=== PATIENT | male | born 1945 | race Caucasian/White ===

== ENCOUNTER → 2023-09-07 11:28 | Outpatient (REF) | payer MEDICARE, OTHER, SELFPAY ==
[2023-09-07 12:46] LABS: ALT (SGPT) 24 U/L (0-50); AST (SGOT) 18 U/L (17-59); Albumin 4.5 g/dl (3.5-5.0); Alkaline Phosphatase 75 U/L (38-126); Direct Bilirubin 0.5 mg/dl (0.0-0.4); Glucose 143 mg/dl (70-99); HDL Cholesterol 57 mg/dl; LDL Cholesterol, Calculated 63 mg/dl; Total Bilirubin 0.5 mg/dl (0.2-1.3); Total Cholesterol 139 mg/dl (50-199); Total Protein 7.1 g/dl (6.3-8.2); Triglyceride 99 mg/dl (10-149); Very Low Density Lipoprotein 19 mg/dl (0-30)
== END ==
LOC: REG 11:28
PROVIDERS: ATTENDING PHYSICIAN Internal Medicine; OTHER PHYSICIAN Internal Medicine
DX: E11.59 Type 2 diabetes mellitus with other circulatory complications (principal); I10 Essential (primary) hypertension; E78.2 Mixed hyperlipidemia; Z79.891 Long term (current) use of opiate analgesic
CPT/HCPCS: 36415; 80061; 80076; 82947; 83036

== ENCOUNTER → 2023-09-13 20:02 | Outpatient (REF) | payer MEDICARE, OTHER, SELFPAY | LOC: MRI 20:02 | PROVIDERS: ATTENDING PHYSICIAN Physician Assistant Surgical; FAMILY PHYSICIAN Internal Medicine | DX: M25.512 Pain in left shoulder (principal) | CPT/HCPCS: 73221 ==

== ENCOUNTER → 2023-09-29 11:45 | Outpatient (REF) | payer MEDICARE, OTHER, SELFPAY | LOC: RAD 11:45 | PROVIDERS: ATTENDING PHYSICIAN Internal Medicine; OTHER PHYSICIAN Internal Medicine; OTHER PHYSICIAN Internal Medicine Critical Care Medicine; OTHER PHYSICIAN Nurse Practitioner Adult Health | DX: Z87.891 Personal history of nicotine dependence (principal); I42.8 Other cardiomyopathies; E11.59 Type 2 diabetes mellitus with other circulatory complications; I10 Essential (primary) hypertension; E78.5 Hyperlipidemia, unspecified; Z00.00 Encounter for general adult medical examination without abnormal findings | CPT/HCPCS: 71271 ==

== ENCOUNTER → 2023-10-03 12:09 | Outpatient (REF) | payer MEDICARE, OTHER, SELFPAY ==
[2023-10-03 13:12] LABS: % Basophils 0.4 % (0-2); % Eosinophils 0.7 % (0-6); % Immature Granulocytes 0.3 % (0-0.5); % Lymphocytes 24.5 % (20.5-51.1); % Monocytes 6.2 % (1.7-9.3); % Neutrophils 67.9 % (42.2-75.2); Absolute Basophils 0.1 10^3/uL (0-0.2); Absolute Eosinophils 0.1 10^3/uL (0-0.7); Absolute Lymphocytes 2.9 10^3/uL (1.2-3.4); Absolute Monocytes 0.7 10^3/uL (0.1-0.6); Absolute Neutrophils 8.1 10^3/uL (1.4-6.5); Hemoglobin 14.4 g/dL (13.0-18.0); Mean Corpuscular Hgb 29.3 pg (27.0-31.0); Mean Corpuscular Volume 91.6 fL (80.0-94.0); Mean Platelet Volume 9.1 fL (7.4-10.4); Nucleated Red Blood Cells % 0 % (-); Platelet Count 275 10^3/uL (130-400); Red Blood Cell Count 4.91 10^6/uL (4.70-6.10)
[2023-10-03 13:38] LABS: ALT (SGPT) 43 U/L (0-50); AST (SGOT) 19 U/L (17-59); Albumin 3.7 g/dl (3.5-5.0); Alkaline Phosphatase 76 U/L (38-126); Blood Urea Nitrogen 26 mg/dl (9-20); Calcium 9.8 mg/dl (8.4-10.2); Carbon Dioxide 23 mmol/L (22-30); Chloride 108 mmol/L (98-107); Glucose 158 mg/dl (70-99); HDL Cholesterol 59 mg/dl; LDL Cholesterol, Calculated 51 mg/dl; Potassium 4.6 mmol/L (3.5-5.1); Sodium 140 mmol/L (135-145); Total Bilirubin 0.5 mg/dl (0.2-1.3); Total Cholesterol 138 mg/dl (50-199); Total Protein 6.1 g/dl (6.3-8.2); Triglyceride 141 mg/dl (10-149); Very Low Density Lipoprotein 28 mg/dl (0-30); eGFR > 60.00
[2023-10-03 14:15] LABS: Glycohemoglobin (HgbA1c) 8.7 % (4.0-5.6)
== END ==
LOC: REG 12:09
PROVIDERS: ATTENDING PHYSICIAN Internal Medicine; FAMILY PHYSICIAN Internal Medicine
DX: I42.8 Other cardiomyopathies (principal); E11.59 Type 2 diabetes mellitus with other circulatory complications; I10 Essential (primary) hypertension; E78.5 Hyperlipidemia, unspecified; Z00.00 Encounter for general adult medical examination without abnormal findings; N41.9 Inflammatory disease of prostate, unspecified
CPT/HCPCS: 36415; 80053; 80061; 83036; 84153; 84154; 85025

== ENCOUNTER → 2023-10-20 09:49 | Outpatient (REF) | payer MEDICARE, OTHER, SELFPAY | LOC: HWRAD 09:49 | PROVIDERS: FAMILY PHYSICIAN Internal Medicine; OTHER PHYSICIAN Orthopaedic Surgery Hand Surgery | DX: R10.13 Epigastric pain (principal); K29.00 Acute gastritis without bleeding; K44.9 Diaphragmatic hernia without obstruction or gangrene; I51.9 Heart disease, unspecified; R11.0 Nausea; M25.511 Pain in right shoulder | CPT/HCPCS: 76700 ==

== ENCOUNTER → 2023-11-07 16:47 | Outpatient (REF) | payer MEDICARE, OTHER, SELFPAY | LOC: RCS 16:47 | PROVIDERS: ATTENDING PHYSICIAN Internal Medicine; FAMILY PHYSICIAN Internal Medicine | DX: I47.10 Supraventricular tachycardia, unspecified (principal); I10 Essential (primary) hypertension | CPT/HCPCS: 93306 ==

== ENCOUNTER → 2023-12-05 13:12 | Outpatient (REF) | payer MEDICARE, OTHER, SELFPAY ==
[2023-12-05 15:59] LABS: Urine Albumin Negative (Neg - Trace); Urine Bilirubin Negative (Negative); Urine Character Clear (Clear); Urine Color Yellow; Urine Glucose 3+ (Negative); Urine Ketone Negative (Negative); Urine Leukocyte Negative (Negative); Urine Nitrite Negative (Negative); Urine Occult Blood Negative (Negative); Urine Urobilinogen Negative (Neg - 1+)
[2023-12-05 16:09] LABS: % Basophils 0.9 % (0-2); % Eosinophils 3.6 % (0-6); % Immature Granulocytes 0.3 % (0-0.5); % Lymphocytes 22.2 % (20.5-51.1); % Monocytes 7.7 % (1.7-9.3); % Neutrophils 65.3 % (42.2-75.2); Absolute Basophils 0.1 10^3/uL (0-0.2); Absolute Eosinophils 0.4 10^3/uL (0-0.7); Absolute Lymphocytes 2.5 10^3/uL (1.2-3.4); Absolute Monocytes 0.9 10^3/uL (0.1-0.6); Absolute Neutrophils 7.4 10^3/uL (1.4-6.5); Hematocrit 44.2 % (39.0-52.0); Hemoglobin 14.6 g/dL (13.0-18.0); Mean Corpuscular Hgb 28.2 pg (27.0-31.0); Mean Corpuscular Volume 85.5 fL (80.0-94.0); Mean Platelet Volume 9.4 fL (7.4-10.4); Nucleated Red Blood Cells % 0 % (-); Platelet Count 273 10^3/uL (130-400); Red Blood Cell Count 5.17 10^6/uL (4.70-6.10); Red Cell Dist. Width 15.5 % (11.5-14.5); White Blood Cell Count 11.4 10^3/uL (4.8-10.8)
[2023-12-05 16:37] LABS: ALT (SGPT) 17 U/L (0-50); AST (SGOT) 18 U/L (17-59); Albumin 4.1 g/dl (3.5-5.0); Blood Urea Nitrogen 30 mg/dl (9-20); Calcium 9.6 mg/dl (8.4-10.2); Carbon Dioxide 21 mmol/L (22-30); Glucose 105 mg/dl (70-99); Potassium 4.9 mmol/L (3.5-5.1); Total Bilirubin 0.3 mg/dl (0.2-1.3); Total Cholesterol 131 mg/dl (50-199); Total Protein 6.4 g/dl (6.3-8.2); Triglyceride 164 mg/dl (10-149); Very Low Density Lipoprotein 32 mg/dl (0-30); eGFR > 60.00
[2023-12-05 16:46] LABS: Alkaline Phosphatase 69 U/L (38-126); Chloride 107 mmol/L (98-107); HDL Cholesterol 50 mg/dl; LDL Cholesterol, Calculated 49 mg/dl; Sodium 136 mmol/L (135-145)
[2023-12-05 17:08] LABS: PSA, Total - Screen 2.18 ng/ml (0.0-4.0)
[2023-12-06 09:08] LABS: Glycohemoglobin (HgbA1c) 7.2 % (4.0-5.6)
== END ==
LOC: REG 13:12
PROVIDERS: ATTENDING PHYSICIAN Specialist; FAMILY PHYSICIAN Internal Medicine; REFERRING PHYSICIAN Internal Medicine Cardiovascular Disease
DX: Z00.01 Encounter for general adult medical examination with abnormal findings (principal); E11.59 Type 2 diabetes mellitus with other circulatory complications; E78.2 Mixed hyperlipidemia; I10 Essential (primary) hypertension; I50.32 Chronic diastolic (congestive) heart failure; Z12.5 Encounter for screening for malignant neoplasm of prostate; I47.10 Supraventricular tachycardia, unspecified; R35.0 Frequency of micturition
CPT/HCPCS: 36415; 80053; 80061; 81003; 83036; 85025; G0103

== ENCOUNTER 2023-12-08 07:38 | Day surgery (SDC) | payer MEDICARE, OTHER, SELFPAY ==
[2023-12-08] VITALS (17 sets, daily range): BP systolic 91–140; BP diastolic 53–88; BMI 31.6
[2023-12-08 09:18] LABS: Glucose - Point of Care 91 mg/dl (70-99)
[2023-12-08 12:13] LABS: ACT-LR - POC 387 Seconds (116-155)
[2023-12-08 12:57] LABS: ACT-LR - POC 356 Seconds (116-155)
[2023-12-08 13:09] LABS: Glucose - Point of Care 130 mg/dl (70-99)
--- NOTE | 2023-12-08 14:24 | ITS.CL.ABL ---
Form Setter [employer] Forms - Ablation
Ablation
Procedure Report:
Supra-Ventricular Tachycardia � AT Ablation:
Mr. Laws is a very pleasant�78 yr old gentleman with medical history significant for palpitations and was diagnosed with supra-ventricular tachycardia (SVT) s/p SVT ablation in [place] presented with recurrent incessant palpitations. He recorded
his heart rate going [id number] bp. He presented today to the EP lab for electrophysiology (EP) study of the heart and possible ablation of the SVT.
�
Date of the Procedure:
12/08/2023
Indications: Supra-Ventricular Tachycardia (SVT)
�
Pre-Operative Diagnosis: Supra-Ventricular Tachycardia (SVT)
�
Post-Operative Diagnosis: Supra-Ventricular Tachycardia (SVT) with AT from left atrial septal wall, AVNRT and right atrial anterior wall AT
�
Procedure Performed: EP study and SVT ablation
�
Performing Physician:
Hemalatha Schwab MD
Assistants:
EP staff
�
Anesthesia:
See anesthesia records
�
Detailed Description of the Procedure:
Written informed consent was obtained from the patient after a full explanation of the risks and benefits of the procedure including the risks of sedation and anesthesia. The patient was brought to the electrophysiology laboratory in stable
condition in fasting state. Continuous electrocardiographic and hemodynamic monitoring was initiated.
The initial rhythm was normal sinus.
The procedure site was meticulously prepared with surgical scrub and allowed to dry with no pooling. Sterile draping was applied to cover the procedure site. The image intensifier was draped with sterile bag and positioned over the patient.
Sheath and Catheter Placement:
After infusion of local anesthetic, vascular access was obtained under ultrasound guidance and sheaths were placed over guide wire as detailed below.
�
Sheaths:
- � � � 6 Fr sheath in right femoral vein upgraded to 9 Fr long Sheath
- � � � 7 Fr sheath in right femoral vein
- � � � 6 Fr that was later upgraded to 11.5 Fr Agilis sheath in right femoral vein
Catheters:
- � � � 6Fr - Erich Quad-cath at RVa
- � � � 6Fr �CRD Quad - cath at HIS
- � � � Deca polar Bard catheter - at locations of CS
- � � � ICE in RA
- � � � 4 mm force sensing irrigated Tacticath SF Bidirectional
Following the sheaths placement, patient was given Heparin bolus and EP study was done.
�
Patient went into SVT spontaneously and was easily inducible during the study. The baseline EP study could not be done due to initiation of AT with every attempt of pacing.
Baseline intervals (milliseconds):
PP interval (baseline cycle length): 740
P wave duration:118
SD interval: 210
QRS duration: 84
QT interval: 354
�
P onset to HRA: 0
P onset to AVJ: 40
AH interval: 114
His duration: 12
HV interval: 51
Q onset to RVa: 0
EP study was difficult to done as patient was in incessant tachycardia � CL of 470 msec.
Tachycardia:
The tachycardia was studies with a cycle length of 470 msec. The tachycardia was concentric and had a long VA time. The tachycardia was entrained from the RVa ventricle.
i)������������� The CS signal of the tachycardia was concentric from proximal to distal
ii)������������ RVa PPI was long
iii)���������� No sign of pre-excited QRS complexes or progressive pre-excitation.�
iv)���������� The RV pacing showed VAAV response.
v)����������� The V pacing also dissociated the V from the tachycardia
vi)���������� The proximal CS entrainment was shorter and distal was longer.
These findings were consistent with atrial tachycardia.�
Electroanatomic mapping:
His catheter was removed and was upgraded to tacticath ablation catheter with Agilis catheter.� Right atrium was mapped using the ablation catheter. �The tachycardia was focal region noted at the right atrial septal wall next to the his signals.�
This is the location of fast pathway.� The possibility of sensory pathway versus atypical AVNRT was again entertained.� The RP was long and was not consistent with typical AVNRT.� However slow slow AVNRT was still possible.� Tachycardia was mapped
thoroughly.� Entrainment's were again done and confirmed to be atrial tachycardia.� Assisted pathway was again ruled out and AVRT was rule out by dissociating RV and LV from the tachycardia.
Slow pathway modification for atypical AVNRT:
With the possibility of slow pathway involvement with slow slow AVNRT, slow pathway was ablated. Using tacticath ablation catheter, the slow pathway modification was done using 30 W with minimal irrigation and contact force sensing. Radiofrequency
was applied and series of lesions were placed connecting the tricuspid annulus to CS orifice.
EP study was done and tachycardia was again inducible with 490 ms cycle length.� The tachycardia was slightly different from the earlier tachycardia noted at the start.� He was again mapped. The tachycardia was incessant and stabilized again to 480
ms.
Tachycardia appears to be coming from the septal side and the decision was made to map the left atrium as well.
RV catheter was removed and upgraded to 924 ice catheter.
Trans-Septal Puncture:
Heparin was initiated and infused to maintain appropriate ACT. A J-tipped guidewire was advanced through the 8-Faroese sheath in the right femoral vein into the superior vena cava under fluoroscopic and ICE guidance. The 8-Faroese sheath was exchanged
for an Agilis sheath which was advanced into the superior vena cava. A TSX needle was advanced until the tip was slightly behind the tip of the dilator inside the Agilis. The apparatus was withdrawn until it was in contact with the fossa ovalis. The
position was adjusted based on fluoroscopy and ultrasound images from ICE. Under fluoroscopic, hemodynamic and ICE ultrasound guidance, left atrium was cannulated by advancing the needle. Once atrial septum was cannulated, the needle was pulled back
and an ironman guide wire was advanced through the needle into the left atrium. The guide wire was advanced into the left superior pulmonary vein. Both the sheath and the dilator was advanced into the left atrium. The dilator with the needle was
withdrawn. Blood was aspirated from the Agilis sheath and arterial blood confirmed. The sheath was flushed. Saline injection noted into the left atrium on ICE. The ablation catheter was advanced in the Agilis sheath into the left pulmonary vein.
Electroanatomic 3D Mapping (EAM) and Ablation:
3D contact electroanatomical map was created using YOLANDE mapping.�The focal AT was noted to be located at the left atrial septalr wall. Excellent q wave pattern noted on the unipolar voltage and pre-P wave bipolar signal noted. �Using the Tacticath
the ablation catheter was placed at the AT origin and ablation lesions were created at 30W at 50 C temp with the goal of LSI of 350 for each lesion.
Further consolidated ablation lesions were applied.
The tachycardia terminated into sinus rhythm. The incessant SVT disappeared and no spontaneous tachycardia was present.
EP study and burst pacing from the CS was able to induce tachycardia again. It was 560 msec and a little different in the CS activation match. The tachycardia was mapped and was thought to be coming from the right atrium.
Right atrial tachycardia ablation:
The catheter was moved from left atrium to the right atrium. The right atrium was again mapped and the earliest focal origin of the tachycardia identified. The focal origin was very close to the fast pathway and his signals.
Using 30 W with minimal irrigation and ablation lesions was created using tacticath and contact for sensing. Tachycardia terminated into normal sinus rhythm with ablation. Further consolidation lesions were applied. There was no damage to conduction
system noted. Normal stable AV conduction noted without any change in SD interval.
Postablation electrophysiologic study:
Follow-up study was done with burst pacing from right atrium, left atrium and CS without any evidence of recurrence of atrial tachycardia or any arrhythmia.� Normal sinus rhythm noted.
Normal connection via AV node noted with normal decremental conduction.� AV juliet ERP was less than atrial ERP which was at 600/240msec.
Procedure End
Following the completion of the EP study, catheters were removed. The sheaths were removed and hemostasis achieved with placement of �figure of 8� sutures and manual compression.
Recommendations:
��������� �Figure of 8� suture to be removed in 4 hours with another 1 hour of bedrest before slow ambulation.
��������� Likely discharge home today.
��������� No change in home medications.
�
Estimated Blood loss:
<5 cc
�
Specimens Removed:
None.
�
Implants / Devices:
None
�
Urine output:
None
�
Packs / Drains/ Tubes:
None
�
Instrument / Sponge Count Correct:
Yes
�
Complications of the Procedure:
None
�
Condition of Patient at Time of Transfer:
Hemodynamically stable with no neurological or vascular compromise.
�
Summary:
Electrophysiology study with induction of left atrial tachycardia (AT), AVNRT with slow pathway modification, atrial tachycardia ablation of the right atrial anterior wall.
[2023-12-08 15:09] LABS: Glucose - Point of Care 185 mg/dl (70-99)
[2023-12-08 15:36] LABS: ACT-LR - POC > 397 Seconds (116-155)
== END 2023-12-08 18:00 | disposition home or self-care (01) ==
LOC: CATH 07:38
PROVIDERS: ATTENDING PHYSICIAN Internal Medicine Cardiovascular Disease; FAMILY PHYSICIAN Internal Medicine; OTHER PHYSICIAN Internal Medicine
DX: I47.19 Other supraventricular tachycardia (principal); Z79.82 Long term (current) use of aspirin; Z79.84 Long term (current) use of oral hypoglycemic drugs; Z79.890 Hormone replacement therapy; Z79.899 Other long term (current) drug therapy
CPT/HCPCS: 93662; C1769; C1730; C1894; C1766; C2630; C1892; C1759; 76937; 82962; 85347; 93005; 93462; 93653

== ENCOUNTER → 2024-02-02 11:20 | Outpatient (REF) | payer MEDICARE, OTHER, SELFPAY ==
[2024-02-02 12:43] LABS: % Basophils 0.4 % (0-2); % Eosinophils 1.9 % (0-6); % Immature Granulocytes 0.6 % (0-0.5); % Lymphocytes 23.1 % (20.5-51.1); % Monocytes 8.3 % (1.7-9.3); % Neutrophils 65.7 % (42.2-75.2); Absolute Basophils 0.1 10^3/uL (0-0.2); Absolute Eosinophils 0.2 10^3/uL (0-0.7); Absolute Immature Granulocytes 0.1 10^3/uL (0-0.05); Absolute Lymphocytes 2.6 10^3/uL (1.2-3.4); Absolute Monocytes 0.9 10^3/uL (0.1-0.6); Absolute Neutrophils 7.4 10^3/uL (1.4-6.5); Hematocrit 42.9 % (39.0-52.0); Hemoglobin 14.2 g/dL (13.0-18.0); Mean Corp Hgb Conc. 33.1 g/dL (33.0-37.0); Mean Corpuscular Hgb 28.5 pg (27.0-31.0); Mean Corpuscular Volume 86.1 fL (80.0-94.0); Mean Platelet Volume 8.7 fL (7.4-10.4); Nucleated Red Blood Cells % 0 % (-); Platelet Count 309 10^3/uL (130-400); Red Blood Cell Count 4.98 10^6/uL (4.70-6.10); Red Cell Dist. Width 16.9 % (11.5-14.5); White Blood Cell Count 11.3 10^3/uL (4.8-10.8)
[2024-02-02 12:56] LABS: ALT (SGPT) 21 U/L (0-50); AST (SGOT) 20 U/L (17-59); Albumin 4.2 g/dl (3.5-5.0); Alkaline Phosphatase 79 U/L (38-126); Blood Urea Nitrogen 21 mg/dl (9-20); Calcium 9.9 mg/dl (8.4-10.2); Carbon Dioxide 26 mmol/L (22-30); Chloride 99 mmol/L (98-107); Glucose 127 mg/dl (70-99); HDL Cholesterol 58 mg/dl; LDL Cholesterol, Calculated 46 mg/dl; Potassium 4.9 mmol/L (3.5-5.1); Sodium 138 mmol/L (135-145); Total Bilirubin 0.5 mg/dl (0.2-1.3); Total Cholesterol 123 mg/dl (50-199); Total Protein 6.7 g/dl (6.3-8.2); Triglyceride 95 mg/dl (10-149); Very Low Density Lipoprotein 19 mg/dl (0-30); eGFR > 60.00
[2024-02-02 13:23] LABS: PSA, Total - Screen 2.44 ng/ml (0.0-4.0)
== END ==
LOC: REG 11:20
PROVIDERS: ATTENDING PHYSICIAN Internal Medicine; FAMILY PHYSICIAN Internal Medicine
DX: E11.59 Type 2 diabetes mellitus with other circulatory complications (principal); I10 Essential (primary) hypertension; E78.5 Hyperlipidemia, unspecified; Z12.5 Encounter for screening for malignant neoplasm of prostate
CPT/HCPCS: 36415; 80053; 80061; 85025; G0103

== ENCOUNTER → 2024-02-26 12:25 | Outpatient (REF) | payer MEDICARE, OTHER, SELFPAY | LOC: RCS 12:25 | PROVIDERS: ATTENDING PHYSICIAN Internal Medicine; FAMILY PHYSICIAN Internal Medicine | DX: I42.8 Other cardiomyopathies (principal); I10 Essential (primary) hypertension; I25.10 Atherosclerotic heart disease of native coronary artery without angina pectoris; I77.810 Thoracic aortic ectasia; Z95.5 Presence of coronary angioplasty implant and graft; I44.0 Atrioventricular block, first degree; E11.59 Type 2 diabetes mellitus with other circulatory complications; I50.32 Chronic diastolic (congestive) heart failure; I47.10 Supraventricular tachycardia, unspecified; I48.3 Typical atrial flutter; I35.0 Nonrheumatic aortic (valve) stenosis | CPT/HCPCS: 93225; 93226 ==

== ENCOUNTER 2024-04-25 15:31 | Emergency (ER) | payer MEDICARE, OTHER, SELFPAY ==
[2024-04-25 15:37] VITALS: BP 126/81
--- NOTE | 2024-04-25 15:42 | ED.GENMED ---
ED Provider Triage
-
Patient seen by provider in Triage?: Seen in Triage
78-year-old male with 5 days worth of progressively worsening weakness dizziness shortness of breath. He denies any significant chest pain. He feels off balance when he walks. Overall he just does not feel well does not feel himself. No reported
fever he has been told as an outpatient that his white blood cell count has been very high. Due to see hematology oncology, Dr. Chaidez this coming Monday
Patient appears nontoxic in triage slight increased work of breathing. Will initiate workup with basic labs EKG troponin CT of head secondary to dizziness
Patient evaluated by medical provider at triage but does warrant further assessment
History of Present Illness
General
Chief Complaint: Weakness
History of Present Illness
History of Present Illness:
.
Past History
Past History
ED Past Medical History: GERD, HTN, Hypercholesterolemia and Other (Rheumatoid arthritis, Cellulitis,)
ED Past Surgical History: Cardiac (Stents)
Social History
Tobacco: Former smoker
Alcohol: Occasional
Drug: None
Personal:
Living: with family
Employment: Employed
Family History
Family History: Hypertension
Phy Exam
Physical Exam
Physical Exam:
.
Course
Orders/Labs/Results
Orders:
Orders
04/25/24 15:57
COVID-19 Antigen Urgent
Source: Nasal Swab
Complete Blood Count/With Diff Urgent
Comprehensive Metabolic Panel Urgent
NT-proBNP Urgent
Troponin I Urgent
Influenza A+B Rapid Molecular Urgent
NIC Source: Nasal Swab
Specimen Description:
Abnormal Lab Results
04/25/24
15:57
WBC 11.5 H 10^3/uL
(4.8-10.8)
MCHC 32.6 L g/dL
(33.0-37.0)
RDW 15.9 H %
(11.5-14.5)
Abs Immat Gran (auto) 0.1 H 10^3/uL
(0-0.05)
Absolute Neuts (auto) 10.6 H 10^3/uL
(1.4-6.5)
Absolute Lymphs (auto) 0.7 L 10^3/uL
(1.2-3.4)
Immature Gran % 0.8 H %
(0-0.5)
Neutrophils % 91.8 H %
(42.2-75.2)
Lymphocytes % 5.9 L %
(20.5-51.1)
Monocytes % 1.2 L %
(1.7-9.3)
BUN 30 H mg/dl
(9-20)
Glucose 353 H mg/dl
(70-99)
Total Protein 6.2 L g/dl
(6.3-8.2)
04/25/24 15:57
04/25/24 15:57
Vital Signs
Initial and Last Documented VS:
Initial Vital Signs
Temp Pulse Resp BP Pulse Ox
97.6 F 109 20 126/81 95
04/25/24 15:37 04/25/24 15:37 04/25/24 15:37 04/25/24 15:37 04/25/24 15:37
Last Documented Vital Signs
Temp Pulse Resp BP Pulse Ox
97.6 F 109 20 126/81 95
04/25/24 15:37 04/25/24 15:37 04/25/24 15:37 04/25/24 15:37 04/25/24 15:37
*Critical Care Note
Total Time (30-74mins, 75-104mins- exclusive of procedures): Not Applicable
ED Attending Note
-
Portions of this chart may have been created with voice recognition software.� Occasional wrong word or��sound alike� substitutions may have occurred due to the inherent limitations of voice recognition software.
Discharge Plan
Departure
Patient Disposition: Left Without Treatment
Prescriptions:
No Action
aspirin [Hubert Chewable Aspirin] 81 MG tablet,chewable
81 mg PO Q72H
allopurinol 300 MG tablet
300 mg PO DAILY
alprazolam [Xanax XR] 2 MG tablet extended release 24 hr
2 mg PO PRN PRN (Reason: anxiety)
nitroglycerin 0.4 MG tablet, sublingual
0.4 mg sublingual [id number] PRN (Reason: chest pain) Qty: 25 3RF
sildenafil 100 MG tablet
100 mg PO PRN PRN (Reason: ED)
metformin 500 mg Tablet
500 mg PO BID
meloxicam 15 mg Tablet
15 mg PO DAILY
bisoprolol fumarate 10 mg Tablet
10 mg PO DAILY
acetaminophen 650 mg Tablet Extended Release
1,300 mg PO BIDPRN PRN (Reason: arthritis)
methocarbamol 750 mg Tablet
750 mg PO DAILY
rosuvastatin 40 mg Tablet
40 mg PO QPM
Januvia 100 mg Tablet
100 mg PO DAILY
Jardiance 25 mg Tablet
25 mg PO DAILY
Entresto 49-51 mg Tablet
1 tab PO DAILY
Trelegy Ellipta 100-62.5-25 mcg Blister With Device
1 inh INHALATION DAILY
testosterone
1.5 mg IM Q2W
mupirocin 2 % Ointment
1 applic TOPICAL BID
Interventions
Interventions:
*Risk Screen - Suicide Last Done: 04/25/24 15:37
*General Assessment Last Done: 04/25/24 15:37
*Neglect/Abuse Screening Last Done: 04/25/24 15:37
*Nursing Disposition Last Done: 04/25/24 18:08
Discharge Date and Time
Discharge Date/Time: 04/25/24 18:08
Print Language: KINYARWANDA
[2024-04-25 16:18] LABS: % Basophils 0.2 % (0-2); % Eosinophils 0.1 % (0-6); % Immature Granulocytes 0.8 % (0-0.5); % Lymphocytes 5.9 % (20.5-51.1); % Monocytes 1.2 % (1.7-9.3); % Neutrophils 91.8 % (42.2-75.2); Absolute Immature Granulocytes 0.1 10^3/uL (0-0.05); Absolute Lymphocytes 0.7 10^3/uL (1.2-3.4); Absolute Monocytes 0.1 10^3/uL (0.1-0.6); Absolute Neutrophils 10.6 10^3/uL (1.4-6.5); Mean Corp Hgb Conc. 32.6 g/dL (33.0-37.0); Mean Corpuscular Hgb 30.4 pg (27.0-31.0); Mean Corpuscular Volume 93.3 fL (80.0-94.0); Mean Platelet Volume 9.2 fL (7.4-10.4); Nucleated Red Blood Cells % 0 % (-); Platelet Count 243 10^3/uL (130-400); Red Blood Cell Count 4.93 10^6/uL (4.70-6.10); Red Cell Dist. Width 15.9 % (11.5-14.5); White Blood Cell Count 11.5 10^3/uL (4.8-10.8)
[2024-04-25 16:34] LABS: ALT (SGPT) 30 U/L (0-50); AST (SGOT) 24 U/L (17-59); Alkaline Phosphatase 67 U/L (38-126); Blood Urea Nitrogen 30 mg/dl (9-20); Calcium 9.7 mg/dl (8.4-10.2); Carbon Dioxide 22 mmol/L (22-30); Chloride 103 mmol/L (98-107); Glucose 353 mg/dl (70-99); Potassium 5.1 mmol/L (3.5-5.1); Sodium 137 mmol/L (135-145); Total Bilirubin 0.4 mg/dl (0.2-1.3); Total Protein 6.2 g/dl (6.3-8.2); eGFR > 60.00
[2024-04-25 16:45] LABS: NT-proBNP 578 pg/ml; Troponin I < 0.012 ng/ml
[2024-04-25 16:49] LABS: COVID-19 Antigen Negative (Negative)
== END 2024-04-25 18:08 ==
LOC: EMR 15:31
PROVIDERS: Physician Assistant
DX: R42 Dizziness and giddiness (principal); R06.02 Shortness of breath; K21.9 Gastro-esophageal reflux disease without esophagitis; I10 Essential (primary) hypertension; E78.00 Pure hypercholesterolemia, unspecified; M06.9 Rheumatoid arthritis, unspecified; Z82.49 Family history of ischemic heart disease and other diseases of the circulatory system; Z87.891 Personal history of nicotine dependence; Z95.5 Presence of coronary angioplasty implant and graft
CPT/HCPCS: 99283; 80053; 83880; 84484; 85025; 87502; 87811

== ENCOUNTER 2024-04-26 17:38 | Emergency (ER) | payer MEDICARE, OTHER, SELFPAY ==
[2024-04-26 17:50] VITALS: BP 125/78
[2024-04-26 18:19] LABS: % Basophils 0.1 % (0-2); % Immature Granulocytes 0.9 % (0-0.5); % Lymphocytes 5.8 % (20.5-51.1); % Monocytes 2.9 % (1.7-9.3); % Neutrophils 90.3 % (42.2-75.2); Absolute Immature Granulocytes 0.1 10^3/uL (0-0.05); Absolute Lymphocytes 0.6 10^3/uL (1.2-3.4); Absolute Monocytes 0.3 10^3/uL (0.1-0.6); Absolute Neutrophils 9.3 10^3/uL (1.4-6.5); Hematocrit 40.4 % (39.0-52.0); Hemoglobin 13.4 g/dL (13.0-18.0); Mean Corp Hgb Conc. 33.2 g/dL (33.0-37.0); Mean Corpuscular Hgb 30.2 pg (27.0-31.0); Mean Corpuscular Volume 91.2 fL (80.0-94.0); Mean Platelet Volume 8.9 fL (7.4-10.4); Nucleated Red Blood Cells % 0 % (-); Platelet Count 212 10^3/uL (130-400); Red Blood Cell Count 4.43 10^6/uL (4.70-6.10); Red Cell Dist. Width 15.7 % (11.5-14.5); White Blood Cell Count 10.3 10^3/uL (4.8-10.8)
[2024-04-26 18:20] LABS: Urine Albumin Negative (Neg - Trace); Urine Bilirubin Negative (Negative); Urine Character Clear (Clear); Urine Color Yellow; Urine Glucose 3+ (Negative); Urine Ketone Negative (Negative); Urine Leukocyte Negative (Negative); Urine Nitrite Negative (Negative); Urine Occult Blood Negative (Negative); Urine Specific Gravity 1.015 (<1.030); Urine Urobilinogen Negative (Neg - 1+)
[2024-04-26 18:35] LABS: AST (SGOT) 19 U/L (17-59); Albumin 3.6 g/dl (3.5-5.0); Alkaline Phosphatase 62 U/L (38-126); Blood Urea Nitrogen 28 mg/dl (9-20); Calcium 9.4 mg/dl (8.4-10.2); Carbon Dioxide 20 mmol/L (22-30); Chloride 102 mmol/L (98-107); Glucose 451 mg/dl (70-99); Potassium 4.5 mmol/L (3.5-5.1); Sodium 136 mmol/L (135-145); Total Bilirubin 0.2 mg/dl (0.2-1.3); Total Protein 5.7 g/dl (6.3-8.2); eGFR > 60.00
[2024-04-26 18:44] LABS: ALT (SGPT) 40 U/L (0-50)
[2024-04-26 22:09] VITALS: BP 127/85
[2024-04-26 22:12] VITALS: BMI 29.3
[2024-04-26 22:30] VITALS: BP 122/86
[2024-04-26] MEDS: NSS 1000 IV (22:33)
[2024-04-26 23:00] VITALS: BP 123/81
[2024-04-26 23:30] VITALS: BP 126/83
[2024-04-26 23:49] LABS: Glucose - Point of Care 160 mg/dl (70-99)
--- NOTE | 2024-04-27 00:02 | ED.GENMED ---
History of Present Illness
General
Chief Complaint: Cardiac Symptoms
Source: patient
Time Seen by Provider: 04/26/24 23:41
History of Present Illness
History of Present Illness:
This patient is a 78-year-old male presents emergency department with multiple vague complaints have been going on for approximately 5 days. He describes generalized fatigue and lack of ambition associated with episodes of feeling off balance
although he denies any falls. He states he is under a lot of stress, going through a recent divorce, is feeling sad although not suicidal, and suspect his symptoms are related to that. He denies numbness, tingling, focal weakness, change in
vision, change in speech, headache. When asked about chest pain he says he gets a 'very seldom', lasts minutes at a time and then resolved completely. He denies back pain, neck pain, fever, chills, nausea, vomiting. He did note mild dysuria over
the last few days.
Past History
Past History
ED Past Medical History: GERD, HTN, Hypercholesterolemia and Other (Rheumatoid arthritis, Cellulitis, KENDRA, mildly dilated ascending aorta, type 2 diabetes, depression)
ED Past Surgical History: Cardiac (Stents)
Social History
Tobacco: Former smoker
Alcohol: Occasional
Drug: None
Personal:
Living: alone
Employment: Employed
Family History
Family History: Hypertension
Phy Exam
Physical Exam
Physical Exam:
GENERAL: Alert , in no apparent distress
EYE: pupils equal and reactive, no nystagmus, no photophobia, EOMI
NECK: Supple, no significant adenopathy.
ENT: o/p clr, mmm.
CARDIAC: Regular rate and rhythm .
LUNGS: Clear breath sounds bilaterally, no acute respiratory distress, no wheezes/rales/rhonchi
ABDOMEN: Soft, without focal tenderness, no r/g, no cvat
NEUROLOGICAL: Alert and oriented, no focal neuro deficits, normal gait, negative Romberg, leieio-ay-epma normal, motor 5 out of 5, sensory intact, cranial nerves II through XII intact
SKIN: Warm and dry, skin intact.
MUSCULOSKELETAL: No edema, well perfused.
PSYCH: Normal and appropriate interaction.
Course
Orders/Labs/Results
Orders:
Orders
04/26/24 17:39
ECG [Electrocardiogram (*1)] Urgent
Reason for Study: Chest Pain
EKG- Treatment ONCE
04/26/24 17:57
CT Head W/o Iv Contrast Urgent
Comment:
Reason For Exam: dizziness
04/26/24 18:11
Complete Blood Count/With Diff Urgent
Comprehensive Metabolic Panel Urgent
Urinalysis Reflex To Culture Urgent
Date Specimen was Collected: 04/26/24
Time Specimen was Collected: 17:55
04/26/24 22:32
0.9% Sodium Chloride 500 ml [Nss] 1,000 ml IV ONCE
Abnormal Lab Results
04/26/24 04/26/24
18:11 23:48
RBC 4.43 L 10^6/uL
(4.70-6.10)
RDW 15.7 H %
(11.5-14.5)
Abs Immat Gran (auto) 0.1 H 10^3/uL
(0-0.05)
Absolute Neuts (auto) 9.3 H 10^3/uL
(1.4-6.5)
Absolute Lymphs (auto) 0.6 L 10^3/uL
(1.2-3.4)
Immature Gran % 0.9 H %
(0-0.5)
Neutrophils % 90.3 H %
(42.2-75.2)
Lymphocytes % 5.8 L %
(20.5-51.1)
Carbon Dioxide 20 L mmol/L
(22-30)
BUN 28 H mg/dl
(9-20)
Glucose 451 H* mg/dl
(70-99)
Total Protein 5.7 L g/dl
(6.3-8.2)
Urine Glucose 3+ A
(Negative)
POC Glucose 160 H mg/dl
(70-99)
04/26/24 18:11
04/26/24 18:11
Vital Signs
Initial and Last Documented VS:
Initial Vital Signs
Temp Pulse Resp BP Pulse Ox
97.8 F 117 18 125/78 99
04/26/24 17:50 04/26/24 17:50 04/26/24 17:50 04/26/24 17:50 04/26/24 17:50
Last Documented Vital Signs
Temp Pulse Resp BP Pulse Ox
97.8 F 93 21 126/83 98
04/26/24 17:50 04/26/24 23:30 04/26/24 23:30 04/26/24 23:30 04/26/24 23:30
*Critical Care Note
Total Time (30-74mins, 75-104mins- exclusive of procedures): Not Applicable
Update Note
Update Note:
Patient presents to the Emergency Department with multiple complaints including fatigue, feeling like balance is off, intermittent chest pain, etc.
Number and Complexity of Problems Addressed at the Encounter
� Chronic conditions affecting care:
� Acute Exacerbation and/or Progression of Chronic Illness:
� Differential Diagnosis includes: But not limited to electrolyte disorder, anemia, CVA, depression, etc. etc.
Amount and/or Complexity of Data to be Reviewed and Analyzed
� I performed an independent evaluation of and my interpretation is:
EKG: Read by me, sinus tachycardia with PAC, no acute ischemia
CT: Read by radiology NAD of the head
Xrays:
Laboratory Studies: Generally unremarkable with exception of hyperglycemia without associated elevated anion gap. Blood sugar status post IV fluids now 160
Other:
� Review of other/old records reveals:
� Clinical information was obtained by an independent historian:
� Prescriptions/Medications Considered but not given:
� Further testing considered but not performed:
Risk of Complications and/or Morbidity or Mortality of Patient Management
� Social determinants of health affecting care:
� Discussion with other providers (PCP, Hospitalists, Consultants, etc):
� Escalation of care including admission/observation vs risk of discharge considered: Patient's neurological exam is normal here, workup generally unremarkable. Highly doubt acute stroke, ACS, etc. as a cause of the symptoms.
Patient does admit to being sad/depressed given recent circumstances but does see a psychiatrist in [place]. He is agreeable to a psychiatric referral here. Does not qualify for or desire inpatient treatment at this time. Discussed with patient
importance of follow-up and reasons return to the ER.
Crisis team was called and they will meet with patient and give him referrals.
ED Attending Note
-
Portions of this chart may have been created with voice recognition software.� Occasional wrong word or��sound alike� substitutions may have occurred due to the inherent limitations of voice recognition software.
Discharge Plan
Departure
Patient Disposition: Home (Routine Discharge)
Date of Disposition: 04/27/24
Time of Disposition: 00:08
Patient with high blood pressure during this ER visit?: Yes
Condition: Good
Discharge Problem:
Fatigue
Instructions: Fatigue (DC), BLOOD PRESSURE
Prescriptions:
No Action
aspirin [Hubert Chewable Aspirin] 81 MG tablet,chewable
81 mg PO Q72H
allopurinol 300 MG tablet
300 mg PO DAILY
alprazolam [Xanax XR] 2 MG tablet extended release 24 hr
2 mg PO PRN PRN (Reason: anxiety)
nitroglycerin 0.4 MG tablet, sublingual
0.4 mg sublingual [id number] PRN (Reason: chest pain) Qty: 25 3RF
sildenafil 100 MG tablet
100 mg PO PRN PRN (Reason: ED)
metformin 500 mg Tablet
500 mg PO BID
meloxicam 15 mg Tablet
15 mg PO DAILY
bisoprolol fumarate 10 mg Tablet
10 mg PO DAILY
acetaminophen 650 mg Tablet Extended Release
1,300 mg PO BIDPRN PRN (Reason: arthritis)
methocarbamol 750 mg Tablet
750 mg PO DAILY
rosuvastatin 40 mg Tablet
40 mg PO QPM
Januvia 100 mg Tablet
100 mg PO DAILY
Jardiance 25 mg Tablet
25 mg PO DAILY
Entresto 49-51 mg Tablet
1 tab PO DAILY
Trelegy Ellipta 100-62.5-25 mcg Blister With Device
1 inh INHALATION DAILY
testosterone
1.5 mg IM Q2W
mupirocin 2 % Ointment
1 applic TOPICAL BID
Referrals:
Ishan Becker MD [Family Provider] - Follow up in 2-3 days
Activity Restrictions/Additional Instructions:
IF YOU DEVELOP RECURRENT CHEST PAIN, ANY NUMBNESS, CHANGE IN VISION, CHANGE IN SPEECH, SEVERE HEADACHE, SEVERE NECK PAIN, WEAKNESS OR CLUMSINESS, OR OTHER WORRISOME SIGNS, PLEASE RETURN TO THE ER IMMEDIATELY.
Interventions
Interventions:
*Risk Screen - Suicide Last Done: 04/26/24 17:50
*General Assessment Last Done: 04/26/24 17:50
*Neglect/Abuse Screening Last Done: 04/26/24 17:50
ED- Fall Risk Assessment Last Done: 04/26/24 22:12
*ED COVID-19 Vaccine History Last Done: 04/26/24 22:12
*Nursing Disposition Last Done: 04/27/24 00:40
ED- Pulmonary Assessment Last Done: 04/26/24 22:12
ED- Cardiac Assessment Last Done: 04/26/24 22:12
Discharge Date and Time
Discharge Date/Time: 04/27/24 00:41
Print Language: COMORAN
== END 2024-04-27 00:41 | disposition home or self-care (01) ==
LOC: EMR 17:38
PROVIDERS: Emergency Medicine; EMERGENCY PHYSICIAN Emergency Medicine; FAMILY PHYSICIAN Internal Medicine
DX: R53.83 Other fatigue (principal); R30.0 Dysuria; R07.9 Chest pain, unspecified; R42 Dizziness and giddiness; F32.A Depression, unspecified; Z73.3 Stress, not elsewhere classified; Z63.5 Disruption of family by separation and divorce; E11.65 Type 2 diabetes mellitus with hyperglycemia; I10 Essential (primary) hypertension; K21.9 Gastro-esophageal reflux disease without esophagitis; E78.00 Pure hypercholesterolemia, unspecified; G47.33 Obstructive sleep apnea (adult) (pediatric); M06.9 Rheumatoid arthritis, unspecified; Z95.5 Presence of coronary angioplasty implant and graft; Z87.891 Personal history of nicotine dependence; Z79.82 Long term (current) use of aspirin
CPT/HCPCS: 99285; 96360; 70450; 80053; 81003; 82962; 85025; 93005

== ENCOUNTER → 2024-06-05 12:00 | Outpatient (REF) | payer MEDICARE, OTHER, SELFPAY | LOC: RAD 12:00 | PROVIDERS: ATTENDING PHYSICIAN Internal Medicine | DX: I71.21 Aneurysm of the ascending aorta, without rupture (principal); I71.43 Infrarenal abdominal aortic aneurysm, without rupture | CPT/HCPCS: 71046 ==

== ENCOUNTER → 2024-06-07 12:33 | Outpatient (REF) | payer MEDICARE, OTHER, SELFPAY ==
[2024-06-07 13:44] LABS: Urine Albumin 2+ (Neg - Trace); Urine Bilirubin Negative (Negative); Urine Character Clear (Clear); Urine Glucose 4+ (Negative); Urine Ketone Negative (Negative); Urine Leukocyte Negative (Negative); Urine Nitrite Negative (Negative); Urine Occult Blood Negative (Negative); Urine Specific Gravity 1.015 (<1.030); Urine Urobilinogen Negative (Neg - 1+); Urine pH 6.5 (5.0-9.0)
[2024-06-07 14:04] LABS: Urine Red Blood Cell 0-2 /HPF (0-2); Urine Squamous Cell 0-2 /LPF (Few); Urine White Cell 0-2 /HPF (0-5)
[2024-06-07 14:15] LABS: ALT (SGPT) 14 U/L (0-50); AST (SGOT) 14 U/L (17-59); Albumin 3.8 g/dl (3.5-5.0); Alkaline Phosphatase 103 U/L (38-126); Blood Urea Nitrogen 35 mg/dl (9-20); Calcium 10.1 mg/dl (8.4-10.2); Carbon Dioxide 26 mmol/L (22-30); Chloride 100 mmol/L (98-107); Glucose 201 mg/dl (70-99); Potassium 4.8 mmol/L (3.5-5.1); Sodium 136 mmol/L (135-145); Total Bilirubin 0.3 mg/dl (0.2-1.3); Total Protein 6.7 g/dl (6.3-8.2); eGFR > 60.00
== END ==
LOC: REG 12:33
PROVIDERS: ATTENDING PHYSICIAN Specialist; FAMILY PHYSICIAN Internal Medicine
DX: E11.59 Type 2 diabetes mellitus with other circulatory complications (principal); R30.0 Dysuria
CPT/HCPCS: 36415; 80053; 81003; 81015; 83036; 87086

== ENCOUNTER → 2024-06-11 14:55 | Outpatient (REF) | payer MEDICARE, OTHER, SELFPAY | LOC: RAD 14:55 | PROVIDERS: ATTENDING PHYSICIAN Internal Medicine | DX: I71.21 Aneurysm of the ascending aorta, without rupture (principal); I71.43 Infrarenal abdominal aortic aneurysm, without rupture; Z72.0 Tobacco use; I50.32 Chronic diastolic (congestive) heart failure | CPT/HCPCS: 71250; 76770 ==

== ENCOUNTER 2024-06-14 14:40 | Inpatient (IN) | payer MEDICARE, OTHER, SELFPAY ==
[2024-06-13 20:13] VITALS: BP 118/86
[2024-06-13 20:47] VITALS: BMI 31.9
[2024-06-13] MEDS: DILAUDID 0.5 MG IV ×2 (21:44→22:58)
--- NOTE | 2024-06-13 21:44 | ED.GENMED ---
History of Present Illness
General
Chief Complaint: Chest Pain
Source: patient
Time Seen by Provider: 06/13/24 21:14
History of Present Illness
History of Present Illness:
78-year-old male presents to the emergency room complaining of left-sided pain. Patient states that he tripped at home and landed on a iron vase. Patient developed severe pain in the left lateral thorax. Pain is worse with any movement. It hurts
when he takes a deep breath. Patient arrived in triage screaming loudly. Patient believes he is on a blood thinner but does not recall the name. Patient did not strike his head.
Past History
Past History
ED Past Medical History: GERD, HTN, Hypercholesterolemia and Other (Rheumatoid arthritis, Cellulitis, KENDRA, mildly dilated ascending aorta, type 2 diabetes, depression)
ED Past Surgical History: Cardiac (Stents)
Social History
Tobacco: Former smoker
Alcohol: Occasional
Drug: None
Personal:
Living: alone
Employment: Employed
Family History
Family History: Hypertension
Phy Exam
Physical Exam
Physical Exam:
General: Awake, Alert, Oriented X3. No acute distress.
Vitals: unremarkable
Head: Atraumatic
Eyes: Pupils equal, EOMI
Throat: Airway intact, no exudates
Neck: Trachea midline
Chest: Tenderness to palpation over the lower anterior and lateral left hemithorax. No crepitance noted
Lungs: Breath sounds present bilaterally, x-ray wheezing bilaterally
Heart: Regular rate, no murmurs
Abd: Soft, mild left upper abdominal tenderness, No pulsatile mass
Neuro: Nonfocal
Skin: Warm, dry, no rash
Extremities: pulses equal b/l, no edema
Scores
Heart Score for Chest Pain Patients
STEMI patient?: Not applicable
Course
Orders/Labs/Results
Orders:
Orders
06/13/24 20:07
EKG [Electrocardiogram (*1)] Stat
Reason for Study: Chest Pain
EKG- Treatment ONCE
06/13/24 20:16
CR Ribs-left 3 Vw W/pa Chest Urgent
Comment:
Reason For Exam: fall
06/13/24 21:27
HYDROmorphone [Dilaudid] 0.5 mg IV NOW STA
06/13/24 21:30
Ipratropium/Albuterol Sulfate [Duoneb] 3 ml INH R NOW STA
06/13/24 21:46
Type+Screen Urgent
Complete Blood Count/With Diff Urgent
Comprehensive Metabolic Panel Urgent
06/13/24 22:43
ABO2 Urgent
BBK Wristband Number:
Associate notified that ABO2 has been ordered: [id number]
Date: 06/13/24
Time: 22:20
Bending Frame Operator ID: [id number]
06/13/24 22:50
HYDROmorphone [Dilaudid] 0.5 mg IV NOW STA
06/13/24 23:57
CT Chest/abd/pel W Iv Cont Urgent
Reason For Exam: fall left chest/abd pain
06/14/24 01:54
HYDROmorphone [Dilaudid] 0.5 mg .ROUTE .STK-MED ONE
06/14/24 01:57
HYDROmorphone [Dilaudid] 0.5 mg IV NOW STA
Abnormal Lab Results
06/13/24
21:46
WBC 21.3 H 10^3/uL
(4.8-10.8)
MCHC 32.4 L g/dL
(33.0-37.0)
RDW 14.8 H %
(11.5-14.5)
Abs Immat Gran (auto) 0.4 H 10^3/uL
(0-0.05)
Absolute Neuts (auto) 16.5 H 10^3/uL
(1.4-6.5)
Absolute Monos (auto) 1.4 H 10^3/uL
(0.1-0.6)
Immature Gran % 2.0 H %
(0-0.5)
Neutrophils % 77.6 H %
(42.2-75.2)
Lymphocytes % 13.2 L %
(20.5-51.1)
Sodium 134 L mmol/L
(135-145)
Chloride 97 L mmol/L
(98-107)
BUN 35 H mg/dl
(9-20)
Glucose 298 H mg/dl
(70-99)
Calcium 10.3 H mg/dl
(8.4-10.2)
AST 15 L U/L
(17-59)
06/13/24 21:46
06/13/24 21:46
Vital Signs
Initial and Last Documented VS:
Initial Vital Signs
Temp Pulse Resp BP Pulse Ox
98.4 F 61 18 118/86 97
06/13/24 20:13 06/13/24 20:13 06/13/24 20:13 06/13/24 20:13 06/13/24 20:13
Last Documented Vital Signs
Temp Pulse Resp BP Pulse Ox
98.7 F 100 21 132/93 94
06/13/24 23:42 06/13/24 23:42 06/13/24 23:42 06/13/24 23:42 06/13/24 23:42
MDM/Problems Addressed
Differential Diagnosis Includes:
Rib fracture, pneumothorax, hemothorax, intra-abdominal trauma
MDM/Problems Addressed:
Patient presents with significant chest wall pain. Plain films did not reveal the source. CT chest abdomen pelvis performed particularly given his use of Eliquis and this does show fractures of the cartilaginous portion of ribs 8 and 9 on the
left. Patient noted to have a aortic aneurysm at 6 cm. This is larger than what last measured at 5 cm but no evidence of dissection or rupture. Patient also noted to have a thoracic aneurysm without any signs of acute issues. Patient will
require hospitalization for pain management. Appropriate to stay here given he has less than 4 rib fractures.
*Radiology
Radiology exam reviewed: preliminary read by ED provider (No fracture or acute pulmonary injury noted on my review of the patient's rib series) and radiology read reviewed
*Pulse Oximetry
Patient hypoxic: no
*EKG
Interpreted by ED Provider?: Yes
Heart Rate: 73
Rate: normal
Rhythm: sinus and PAC's
Interval: normal interval
QRS Pattern: normal QRS
Ischemia: non-specific ST changes
*Gold Stamper Interpretation
Rate: normal
Interpretation: normal
Rhythm: sinus
*Critical Care Note
Total Time (30-74mins, 75-104mins- exclusive of procedures): Not Applicable
ED Attending Note
-
Portions of this chart may have been created with voice recognition software.� Occasional wrong word or��sound alike� substitutions may have occurred due to the inherent limitations of voice recognition software.
Discharge Plan
Departure
Patient Disposition: Admit
Date of Disposition: 06/14/24
Time of Disposition: 01:20
Admit to: Med/Surg
Presentation/result/management discussed w/ accepting MD/DO: Hospitalist
Condition: Fair
Discharge Problem:
Ribs, multiple fractures
Prescriptions:
No Action
aspirin [Hubert Chewable Aspirin] 81 MG tablet,chewable
81 mg PO Q72H
allopurinol 300 MG tablet
300 mg PO DAILY
alprazolam [Xanax XR] 2 MG tablet extended release 24 hr
2 mg PO PRN PRN (Reason: anxiety)
nitroglycerin 0.4 MG tablet, sublingual
0.4 mg sublingual [id number] PRN (Reason: chest pain) Qty: 25 3RF
sildenafil 100 MG tablet
100 mg PO PRN PRN (Reason: ED)
metformin 500 mg Tablet
1,000 mg PO BID
meloxicam 15 mg Tablet
15 mg PO DAILY
bisoprolol fumarate 10 mg Tablet
10 mg PO DAILY
acetaminophen 650 mg Tablet Extended Release
1,300 mg PO BIDPRN PRN (Reason: arthritis)
rosuvastatin 40 mg Tablet
40 mg PO QPM
Januvia 100 mg Tablet
100 mg PO DAILY
Jardiance 25 mg Tablet
25 mg PO DAILY
sacubitril-valsartan [Entresto] 49-51 mg Tablet
1 tab PO BID
Trelegy Ellipta 100-62.5-25 mcg Blister With Device
1 inh INHALATION DAILY
testosterone
1.5 mg IM Q2W
Referrals:
Ishan Becker MD [Family Provider] -
Interventions
Interventions:
*Risk Screen - Suicide Last Done: 06/13/24 20:13
*General Assessment Last Done: 06/13/24 20:13
*Neglect/Abuse Screening Last Done: 06/13/24 20:13
ED- Fall Risk Assessment Last Done: 06/13/24 23:38
*ED COVID-19 Vaccine History Last Done: 06/13/24 20:47
ED- Cardiac Assessment Last Done: 06/13/24 23:38
Discharge Date and Time
Print Language: [place] LUCI[place]
[2024-06-13] MEDS: DUONEB 3 ML INH (21:45)
[2024-06-13 22:00] VITALS: BP 105/77
[2024-06-13 22:04] LABS: % Basophils 0.2 % (0-2); % Eosinophils 0.3 % (0-6); % Lymphocytes 13.2 % (20.5-51.1); % Monocytes 6.7 % (1.7-9.3); % Neutrophils 77.6 % (42.2-75.2); Absolute Basophils 0.1 10^3/uL (0-0.2); Absolute Eosinophils 0.1 10^3/uL (0-0.7); Absolute Immature Granulocytes 0.4 10^3/uL (0-0.05); Absolute Lymphocytes 2.8 10^3/uL (1.2-3.4); Absolute Monocytes 1.4 10^3/uL (0.1-0.6); Absolute Neutrophils 16.5 10^3/uL (1.4-6.5); Hematocrit 44.2 % (39.0-52.0); Hemoglobin 14.3 g/dL (13.0-18.0); Mean Corp Hgb Conc. 32.4 g/dL (33.0-37.0); Mean Corpuscular Hgb 29.5 pg (27.0-31.0); Mean Corpuscular Volume 91.3 fL (80.0-94.0); Mean Platelet Volume 8.6 fL (7.4-10.4); Nucleated Red Blood Cells % 0 % (-); Platelet Count 391 10^3/uL (130-400); Red Blood Cell Count 4.84 10^6/uL (4.70-6.10); Red Cell Dist. Width 14.8 % (11.5-14.5); White Blood Cell Count 21.3 10^3/uL (4.8-10.8)
[2024-06-13 22:17] LABS: ALT (SGPT) 20 U/L (0-50); AST (SGOT) 15 U/L (17-59); Albumin 4.6 g/dl (3.5-5.0); Alkaline Phosphatase 102 U/L (38-126); Blood Urea Nitrogen 35 mg/dl (9-20); Calcium 10.3 mg/dl (8.4-10.2); Carbon Dioxide 25 mmol/L (22-30); Chloride 97 mmol/L (98-107); Estimated Creatinine Clearance 65 ml/min; Glucose 298 mg/dl (70-99); Potassium 4.7 mmol/L (3.5-5.1); Sodium 134 mmol/L (135-145); Total Bilirubin 0.6 mg/dl (0.2-1.3); eGFR > 60.00
[2024-06-13 23:42] VITALS: BP 132/93
[2024-06-14] VITALS (18 sets, daily range): BP systolic 110–148; BP diastolic 72–102; PULSE 75; O2SAT 97; BMI 31.9; BMI 29.9
[2024-06-14] MEDS: DILAUDID 0.5 MG IV ×4 (01:57→18:04)
--- NOTE | 2024-06-14 02:11 | HPS.HSE ---
Family Physician
-
Family Physician: Devan Becker
Chief Complaint
-
Fall and chest pain
History of Present Illness
This is a 78-year-old with past medical history significant for tobacco use, COPD, bronchiectasis, sleep apnea, CAD, bfy-vegwyqe-stxkirqff diabetes, CHF, history of A-fib status post ablation not currently anticoagulated who presents to the
emergency department following a mechanical fall at home and found to have slightly displaced left-sided or rib fractures at the cartilaginous junction.
Patient reports that it been in usual state of health with known chronic COPD with chronic cough. He was walking in his house when he tripped and landed on a metal vase with his chest. He denied hitting his head. He immediately developed
significant chest pain that is worse with inspiration and coughing. Prior to that denied having fevers or chills. Reports chronic congestion and cough for but that has been going on for over 2 years. Patient also reports that he is recently
placed on antibiotic for urinary tract infections which resulted in a blue discoloration of his urine.
In the emergency department he was afebrile, blood pressure was 130/90 with a pulse of 100. He was satting 90 to 94% on room air. CBC notable for a white count of 21.3, no bands hemoglobin platelets were normal. Electrolytes BUN/creatinine within
the normal range. Glucose was elevated at 298.
Medical History
Past Medical History
Past Medical History: Reports Arrhythmia (Proximal atrial fibrillation status post ablation), CHF, COPD (Not on home O2), HTN, Hypercholesterolemia and Other (Sleep apnea on CPAP)
Past Surgical History: Reports Orthopedic
Social History
Tobacco: Smoker
Alcohol: Occasional
Drug: None
Personal:
Living: Alone
Employment: Retired
Family History
Family History: Not pertinent
Allergies / Home Medications
Allergies reflects when Allergies were last updated in [employer].
Home Medications with original date entered in [employer]
Allergy/Medication List:
Allergies
Allergy/AdvReac Type Severity Reaction Status Date / Time
No Known Allergies Allergy Verified 06/13/24 20:13
Home Medications
allopurinol 300 mg tablet 300 mg PO DAILY 08/31/15
alprazolam 2 mg tablet,extended release 24 hr (Xanax XR) 2 mg PO PRN PRN anxiety 08/31/15
aspirin 81 mg chewable tablet (Hubert Chewable Low Dose Aspirin) 81 mg PO Q72H 08/31/15
nitroglycerin 0.4 mg sublingual tablet 0.4 mg sublingual [id number] PRN chest pain #25 tabs 08/31/15
sildenafil 100 mg tablet 100 mg PO PRN PRN ED 02/25/21
acetaminophen 650 mg tablet,extended release 1,300 mg PO BIDPRN PRN arthritis 12/08/23
bisoprolol fumarate 10 mg tablet 10 mg PO DAILY 12/08/23
empagliflozin 25 mg tablet (Jardiance) 25 mg PO DAILY 12/08/23
fluticasone fur. 100 mcg-umeclid 62.5 mcg-vilant 25 mcg inhalat.powder (Trelegy Ellipta) 1 inh inhalation DAILY 12/08/23
meloxicam 15 mg tablet 15 mg PO DAILY 12/08/23
metformin 500 mg tablet 1,000 mg PO BID 12/08/23
rosuvastatin 40 mg tablet 40 mg PO QPM 12/08/23
sacubitril 49 mg-valsartan 51 mg tablet (Entresto) 1 tab PO BID 12/08/23
sitagliptin phosphate 100 mg tablet (Januvia) 100 mg PO DAILY 12/08/23
testosterone 1.5 mg IM Q2W 01/11/24
Review of Systems
-
Constitutional: Reports No Symptoms
EENT: Reports No Symptoms
Respiratory: Reports Cough
Cardiac: Reports Chest Pain
Abdomen/GI: Reports No Symptoms
: Reports No Symptoms
Musculoskeletal: Reports No Symptoms
Skin: Reports No Symptoms
Neurological: Reports No Symptoms
Endocrine: Reports No Symptoms
Hematologic/Lymphatic: Reports No Symptoms
Psych: Reports No Symptoms
Physical Exam
Vital Signs
Vital Signs
Temp Pulse Resp BP Pulse Ox
98.7 F 100 21 132/93 94
06/13/24 23:42 06/13/24 23:42 06/13/24 23:42 06/13/24 23:42 06/13/24 23:42
Physical Exam
General: Conversant and Pain
HEENT: NormoCephalic, Anicteric, Moist mucous membranes, Atraumatic and PERRLA
Respiratory: Decreased Breath Sounds
Cardiac: S1/S2 and Regular Rhythm
Breast: Deferred by me
GI: Soft, Non Tender, Non Distended and Normal Bowel Sounds
Rectal: Deferred by Provider
Genito-urinary: Deferred by me
Musculoskeletal: No Clubbing, No Cyanosis and No Edema
Skin: Warm
Neuro: AO x 3 and Nonfocal/grossly intact
Hematologic/Lymphatic: No Lymphadenopathy
Psych: Calm
Laboratory Results
-
06/13/24 21:46
06/13/24 21:46
Laboratory Results
Total Bilirubin 0.6 mg/dl (0.2-1.3) 06/13/24 21:46
AST 15 U/L (17-59) L 06/13/24 21:46
ALT 20 U/L (0-50) 06/13/24 21:46
Alkaline Phosphatase 102 U/L (38-126) 06/13/24 21:46
Data Reviewed
-
Diagnostic Radiology: Report Reviewed by me
CT Scan: Report Reviewed by me
Lab Data: Labs Reviewed by me
Old Records: Reviewed
Impression/Plan
-
IMPRESSION:
78-year-old with extensive past medical history significant for COPD, KENDRA on CPAP, CAD, CHF presenting to the emergency department following a mechanical fall with trauma to the thoracic cage. He appears to have suffered left eighth and ninth rib
fracture adequately genius junction, displacement seen on the CT scan but not on x-ray. He is a moderate significant pain. There is no increased oxygen requirement and is satting about 90 to 93% on room air. CT scan does not show an acute focal
infiltrate but there could be possibility of atelectasis. He is currently afebrile. Leukocytosis noted but no other signs of acute infection. He has a blue discoloration to his urine which he says was secondary to antibiotic use twice daily.
Unable to provide name
PLAN:
1. Rib fracture - Rib 8th and 9th. Cartilaginous section. Minimally displaced. No pneumothorax. There is abdominal wall hematoma related to the fall but not the fractures.
- admit to med/surg
- pain control with acetaminophen, nsaids and dilaudid prn
- will give incentive spirometry as pain tolerates
- currently no acute indication for braces, monitor with ambulation
- PT evaluation
- Case managements as patient may be unable to care for himself at home.
2. COPD - chronic cough unchanged. No new O2 requirements. Ongoing tobacco use
- continue Trelegy
- duonebs RTC and prn
- keep sat > 88%
- nicotine prn
3. AFIb
- no AC, josephine 81 every 2nd days
- continue bisoprolol
4. DM II
- hold metformin x 24 hours
- jardiance, januvia
- insulin sliding scale
5. Urine - No acute urinary symptoms. Unable to determine the abx causing the blue discoloration
- obtain u/a
- obtain records from [facility] in am
6. CHF - HD stable. No volume issues
- continue entresto
7. AAA - 6.5 cm, up from 5 cm.
- med management as above
- needs to quit tobacco
- vascular outpatient follow up (consider inpatient consultation as patient may not be able to set up appointment on his own)
DVT PPX - lovenox sq
Code status - Full Code
[2024-06-14] MEDS: ROXICODONE 5 MG PO ×2 (04:10→16:27)
[2024-06-14] MEDS: TYLENOL 650 MG PO ×4 (04:13→20:21)
[2024-06-14] MEDS: NSS 250 IV (04:21)
[2024-06-14 04:37] LABS: Urine Albumin 2+ (Neg - Trace); Urine Bilirubin Negative (Negative); Urine Character Clear (Clear); Urine Glucose 3+ (Negative); Urine Ketone Negative (Negative); Urine Leukocyte Negative (Negative); Urine Nitrite Negative (Negative); Urine Occult Blood 1+ (Negative); Urine Urobilinogen Negative (Neg - 1+)
[2024-06-14 04:38] LABS: Urine Color Blue
[2024-06-14 04:48] LABS: Urine Bacteria Few (Negative)
[2024-06-14 07:39] LABS: Hemoglobin 12.2 g/dL (13.0-18.0); Mean Corp Hgb Conc. 33.9 g/dL (33.0-37.0); Mean Corpuscular Hgb 30.2 pg (27.0-31.0); Mean Corpuscular Volume 89.1 fL (80.0-94.0); Mean Platelet Volume 8.8 fL (7.4-10.4); Platelet Count 314 10^3/uL (130-400); Red Blood Cell Count 4.04 10^6/uL (4.70-6.10); Red Cell Dist. Width 14.8 % (11.5-14.5); White Blood Cell Count 15.7 10^3/uL (4.8-10.8)
[2024-06-14 07:58] LABS: Blood Urea Nitrogen 28 mg/dl (9-20); Calcium 9.3 mg/dl (8.4-10.2); Carbon Dioxide 24 mmol/L (22-30); Chloride 105 mmol/L (98-107); Estimated Creatinine Clearance 83 ml/min; Glucose 179 mg/dl (70-99); Potassium 4.4 mmol/L (3.5-5.1); Sodium 134 mmol/L (135-145); eGFR > 60.00
[2024-06-14] MEDS: SYMBICORT 80/4.5 MCG INHALER 2 PUFF INH ×2 (08:15→18:08)
[2024-06-14] MEDS: SPIRIVA RESPIMAT 2.5 MCG 2 PUFF INH (08:15)
[2024-06-14] MEDS: VENTOLIN NEBULES 2.5 MG INH ×4 (08:15→18:08)
[2024-06-14 08:36] LABS: Glucose - Point of Care 167 mg/dl (70-99)
[2024-06-14] MEDS: JANUVIA 100 MG PO (08:59)
[2024-06-14] MEDS: ZEBETA 10 MG PO (08:59)
[2024-06-14] MEDS: MOBIC 15 MG PO (08:59)
[2024-06-14] MEDS: ZYLOPRIM 300 MG PO (09:00)
[2024-06-14] MEDS: LOW STRENGTH ASPIRIN 81 MG PO (09:00)
[2024-06-14] MEDS: FARXIGA 10 MG PO (09:00)
[2024-06-14] MEDS: NOVOLOG FLEXPEN-LOW RESISTANCE 1 UNITS SC ×2 (09:06→12:05)
--- NOTE | 2024-06-14 10:20 | CON.VAS ---
Addendum entered and electronically signed by Hadley Patton MD 06/14/24 15:35:
Seen and evaluated with KIMBERLY Starkey. History as noted below. 78-year-old male with extensive tobacco use history, no family history of abdominal aortic aneurysms. Has known about abdominal aortic aneurysm based initially on scans completed while he
lived in [place]. He travels back and forth from [place]. No abdominal pain or back pain currently (aside from his pain related to his fall at his rib). He notes that he does not really walk much. So did not describe any claudication. Denies
any lower extremity revascularization procedures.
On his exam he is in no acute distress. His breathing is fairly unlabored though when he does talk excessively it seems that there may be some dyspnea. His abdomen is soft, nondistended, nontender. When I palpate directly over the pulsation of
the aortic aneurysm, there is no tenderness. His groins have 1+/2+ slightly weak and femoral pulses bilaterally. 1+/2+ popliteal pulses nonfocal. Feet are warm with palpable PT pulses bilaterally 1+/2+.
CT scan reviewed. Extensive atherosclerosis. He has a fusiform infrarenal abdominal aortic aneurysm with chronic calcified wall measuring 5.2 cm by about 5.7 cm. Extensive iliac atherosclerotic disease and likely some common iliac artery stenoses.
Plan/ Abdominal aortic aneurysm. Meets size criteria for consideration of repair. Would certainly not be a straightforward repair in the sense that he is high risk due to his medical comorbidities. COPD may put him at slightly increased risk of
rupture, however, and therefore if he is a candidate for repair likely would favor repairing. I do not think he is a candidate for any open surgical repair, but perhaps endovascular therapy. But endovascular therapy anatomically is confounded by
the fact that his access vessel/iliac vessels are plaque laden and may be challenging access issues. Regardless no emergent need for repair at this point. I have given him our office information and I will see him in the office in the near future
to further discuss potential repair if he is a candidate.
Original Note:
Consultation
Consultation Request
Performing Provider: Abdi
Reason for Consultation: AAA
Medical History
-
Chief Complaint: Fall
History of Present Illness:
78-year-old male with significant past medical history for tobacco abuse, COPD, deep apnea, CAD with stents, diabetes, CHF, A-fib status post ablation (not on anticoagulation). Patient presented to emergency room following a mechanical fall at
home. Patient admitted for management of rib fractures.
CTA chest abdomen pelvis impression: Fractures of the costal cartilages of the left anterior eighth and ninth ribs, which are adjacent to the upper abdomen. Stranding of the fat within the adjacent abdominal wall, suggesting contusion. Dilation of
the ascending aorta, for axis diameter of 4.4 cm at the level the right main pulmonary artery, stable from recent exam. Aneurysm of the distal abdominal aorta 5.5 cm.
Vascular consult for AAA finding.
Patient seen at bedside this afternoon with Dr. Patton. Patient aware of his AAA. States his primary Dr. George had been following, though they did not get scans last year. Patient also follows with a vascular surgeon in [facility] but
states he will be staying in this area now. Patient agrees to follow-up with our office.
Denies abdominal pain, back pain. Has no complaints other than a ' soreness' to the left ribs.
Past Medical History
Past Medical History: Other (A-fib status post ablation, CHF, COPD, hypertension, sleep apnea, hypercholesterolemia, active smoker)
Past Surgical History: Cardiac (Stenting) and Orthopedic
Social History
Tobacco: Smoker
Alcohol: Occasional
Drug: None
Personal:
Living: Alone
Employment: Retired
Family History
Family History: Reviewed & Not Pertinent
Allergies / Home Medications
Allergy/AdvReac Type Severity Reaction Status Date / Time
No Known Allergies Allergy Verified 06/13/24 20:13
�Medication �Instructions �Recorded �Confirmed �Type
allopurinol 300 mg tablet 300 mg PO DAILY 08/31/15 06/14/24 History
aspirin 81 mg chewable tablet 81 mg PO Q72H 08/31/15 06/14/24 History
(Hubert Chewable Low Dose Aspirin)
nitroglycerin 0.4 mg sublingual 0.4 mg sublingual [id number] PRN 08/31/15 06/14/24 Rx
tablet chest pain #25 tabs
bisoprolol fumarate 10 mg tablet 10 mg PO DAILY 12/08/23 06/14/24 History
empagliflozin 25 mg tablet 25 mg PO DAILY 12/08/23 06/14/24 History
(Jardiance)
fluticasone fur. 100 mcg-umeclid 1 inh inhalation R DAILY 12/08/23 06/14/24 History
62.5 mcg-vilant 25 mcg
inhalat.powder (Trelegy Ellipta)
meloxicam 15 mg tablet 15 mg PO DAILY 12/08/23 06/14/24 History
metformin 500 mg tablet 1,000 mg PO BID 12/08/23 06/14/24 History
rosuvastatin 40 mg tablet 40 mg PO QPM 12/08/23 06/14/24 History
sitagliptin phosphate 100 mg 100 mg PO DAILY 12/08/23 06/14/24 History
tablet (Januvia)
testosterone cypionate 100 mg/mL 50 mg IM Q2W 01/11/24 06/14/24 History
intramuscular oil
apixaban 5 mg tablet (Eliquis) 5 mg PO BID 06/14/24 06/14/24 History
gabapentin 100 mg capsule 300 mg PO HS 06/14/24 06/14/24 History
metoprolol succinate 50 mg 50 mg PO BID 06/14/24 06/14/24 History
tablet,extended release 24 hr
(Toprol XL)
sacubitril 49 mg-valsartan 51 mg 1 tab PO BID 06/14/24 06/14/24 History
tablet (Entresto)
Review of Systems
-
History Source: Patient
All other systems: Negative unless noted
Constitutional: Reports No Symptoms
EENT: Reports No Symptoms
Respiratory: Reports Cough (Chronic)
Vascular: Denies Leg Pain / Claudication
Abdomen/GI: Reports No Symptoms
: Reports No Symptoms
Skin: Reports No Symptoms
Neurological: Reports No Symptoms
Endocrine: Reports No Symptoms
Physical Exam
Vital Signs
Temp Pulse Resp BP Pulse Ox
98.7 F 75 19 143/85 94
06/13/24 23:42 06/14/24 08:10 06/14/24 08:10 06/14/24 07:00 06/14/24 08:10
Lab Results
06/14/24 07:27
06/14/24 07:27
Physical Exam
General: No Apparent Distress
HEENT: Normocephalic and Atraumatic
Respiratory: Non Labored Respirations
Cardiac: Negative JVD
GI: Soft, Non Tender and Non Distended
Musculoskeletal: No Clubbing, No Cyanosis and No Edema
Skin: Warm
Neuro: Awake, Alert and Oriented
Psych: Calm
Pulses: Bilateral Femoral: +2, Bilateral Popliteal: +2 and Bilateral Posterior Tibial: +1
Assessment / Plan
-
78-year-old male here for fall with rib fractures
CTA suggests 5-5.5 cm AAA
Plan:
-Outpatient follow-up for surgical discussion regarding AAA
Data Reviewed
-
CT Scan: Discussed with Patient
[2024-06-14] MEDS: TYLENOL PO (11:20)
[2024-06-14] MEDS: ENTRESTO 49 MG/51 MG 1 TAB PO ×2 (11:24→20:22)
[2024-06-14 11:56] LABS: Glucose - Point of Care 184 mg/dl (70-99)
--- NOTE | 2024-06-14 12:54 | W.PN.UPDATE ---
Update Note
Progress Note Update
Non-billable addendum
Admitted with fall and two rib fractures + abdominal wall contusion. Pain decently controlled, no SOB. No other complaints
Incidentally found to have AAA measuring 6.5cm - Vascular consulted
Assessment:
Mechanical fall with traumatic rib fractures
- CT: Fractures of the costal cartilages of the left anterior eighth and ninth ribs, which are adjacent to the upper abdomen. Stranding of the fat within the adjacent abdominal wall, suggesting contusion.
- pain control
- IS
- PT/OT eval
Leukocytosis
- suspect leukemoid reaction to fractures
- recent completed Abx for UTI; repeat UA without signs of infection
- CXR clear
- monitor WBC daily
Incidental finding of AAA 6.5 cm
- Vascular evaluation
COPD
- continue inhalers/nebs
Parox A.fib
- holding Eliquis
- continue bisoprolol. consider resume Metoprolol if accurate med list
Type 2 DM
- continue Januvia, Jardiance
- hold Metformin
- SSI
- A1c: 10.0% recently
Chronic HFpEF
- continue Entresto
DVT ppx: Eliquis
Code: Full
[2024-06-14] MEDS: FLUSH (NSS) 2 FLUSH IV ×2 (13:55→18:04)
--- NOTE | 2024-06-14 14:00 | PTCARENOTE ---
Received pt from ED via stretcher. Pt ambulated to bed with standby assist. Pt c/o 12/08 LL rib pain, see MAR. AAOx3. Forgetful. Assessed and oriented to room. Pt verbalized understanding of call coe. Call coe within close reach. Will continue to
monitor.
[2024-06-14 17:03] LABS: Glucose - Point of Care 224 mg/dl (70-99)
--- NOTE | 2024-06-14 17:09 | CM ---
Met with patient at bedside; initial assessment and CM Consults completed
Pharmacy verified; [facility] @ [address] [facility], [place], [place]
CORTES form explained; form signed @ [id number]
Patient lives alone in a single multilevel home; 1 step to enter; 8 steps between floors; railings on stairs; bedroom and bathroom on the 1st floor; bath has walk-in shower with built in seat
PLOF: was independent with ambulation and ADLs; drives; retired
No recent SNF utilization; No home health
Transportation: will take an [facility] if [facility] is not available to transport home
PT recommended Home Health; referral sent via [facility] to [facility] (VN, PT)
Plan: Discharge to home when medically stable with home health services
[2024-06-14] MEDS: NOVOLOG FLEXPEN-LOW RESISTANCE 2 UNITS SC (17:21)
[2024-06-14] MEDS: CRESTOR 40 MG PO (17:23)
[2024-06-14] MEDS: ZOFRAN 4 MG IV (19:13)
[2024-06-14] MEDS: ELIQUIS 5 MG PO (20:22)
[2024-06-14 21:23] LABS: Glucose - Point of Care 173 mg/dl (70-99)
[2024-06-14] MEDS: NEURONTIN 300 MG PO (22:26)
[2024-06-15] MEDS: TYLENOL 650 MG PO ×2 (00:03→08:00)
[2024-06-15] MEDS: ROXICODONE 5 MG PO (00:09)
[2024-06-15] MEDS: TYLENOL PO ×2 (05:10→11:33)
[2024-06-15 07:00] VITALS: BP 132/80
[2024-06-15 07:54] LABS: Glucose - Point of Care 171 mg/dl (70-99)
[2024-06-15] MEDS: FARXIGA 10 MG PO (07:59)
[2024-06-15] MEDS: JANUVIA 100 MG PO (07:59)
[2024-06-15] MEDS: ZYLOPRIM 300 MG PO (07:59)
[2024-06-15] MEDS: ZEBETA 10 MG PO (07:59)
[2024-06-15] MEDS: ENTRESTO 49 MG/51 MG 1 TAB PO (07:59)
[2024-06-15] MEDS: MOBIC 15 MG PO (08:00)
[2024-06-15] MEDS: DILAUDID 0.5 MG IV (08:00)
[2024-06-15] MEDS: ELIQUIS 5 MG PO (08:00)
[2024-06-15] MEDS: NOVOLOG FLEXPEN-LOW RESISTANCE 1 UNITS SC (08:00)
[2024-06-15] MEDS: SPIRIVA RESPIMAT 2.5 MCG 2 PUFF INH (08:46)
[2024-06-15] MEDS: SYMBICORT 80/4.5 MCG INHALER 2 PUFF INH (08:47)
[2024-06-15] MEDS: VENTOLIN NEBULES 2.5 MG INH ×2 (08:47→11:41)
[2024-06-15 09:55] LABS: Hematocrit 39.8 % (39.0-52.0); Mean Corp Hgb Conc. 32.7 g/dL (33.0-37.0); Mean Corpuscular Hgb 29.5 pg (27.0-31.0); Mean Corpuscular Volume 90.2 fL (80.0-94.0); Platelet Count 300 10^3/uL (130-400); Red Blood Cell Count 4.41 10^6/uL (4.70-6.10); Red Cell Dist. Width 14.7 % (11.5-14.5); White Blood Cell Count 13.2 10^3/uL (4.8-10.8)
[2024-06-15 10:19] LABS: Blood Urea Nitrogen 25 mg/dl (9-20); Calcium 9.4 mg/dl (8.4-10.2); Carbon Dioxide 23 mmol/L (22-30); Chloride 103 mmol/L (98-107); Estimated Creatinine Clearance 77 ml/min; Glucose 157 mg/dl (70-99); Potassium 4.6 mmol/L (3.5-5.1); Sodium 135 mmol/L (135-145); eGFR > 60.00
--- NOTE | 2024-06-15 10:55 | W.PN.HOSP.TC ---
Today's Communication/Plan
-
dc home/VN
Assessment / Plan
Assessment / Plan
Assessment:
Mechanical fall with traumatic rib fractures
- CT: Fractures of the costal cartilages of the left anterior eighth and ninth ribs, which are adjacent to the upper abdomen. Stranding of the fat within the adjacent abdominal wall, suggesting contusion.
- pain control
- IS
- PT/OT eval - home/VN
Leukocytosis
- suspect leukemoid reaction to fractures
- recent completed Abx for UTI; repeat UA without signs of infection
- CXR clear
- monitor WBC daily
Incidental finding of AAA 6.5 cm
- Vascular evaluation OP for endovascular repair
COPD
- continue inhalers/nebs
Parox A.fib
- resume Eliquis
- continue Metoprolol
Type 2 DM
- continue Januvia, Jardiance
- resume Metformin
- SSI
- A1c: 10.0% recently
Chronic HFpEF
- continue Entresto
DVT ppx: Eliquis
Code: Full
More than 30 minutes spent in discharge including
Final examination of the patient
Summarizing hospital stay
Instructions for continuing care to all relevant caregivers
Preparation of discharge records, prescriptions, and referral forms
Total time spent (in minutes): 41
Anticipated Discharge: Today
Subjective/Interval History
-
Date of Service: June 15, 2024
pain under control
denies any new complaints
Objective Data
-
Labs:
Laboratory Results
06/15/24
08:18
WBC 13.2 H
Hgb 13.0
Hct 39.8
Plt Count 300
Sodium 135
Potassium 4.6
Chloride 103
Carbon Dioxide 23
BUN 25 H
Creatinine 0.7
Glucose 157 H
Calcium 9.4
Vital Signs:
Vital Signs
Temp Pulse Resp BP Pulse Ox
98.9 F 82 16 132/80 94
06/15/24 07:00 06/15/24 08:51 06/15/24 08:51 06/15/24 07:59 06/15/24 08:51
I&O
06/14/24 06/15/24 06/16/24
06:59 06:59 06:59
Intake Total 980 / 980
Output Total 525 / 525
Balance -525 / -525 980 / 980
Physical Exam
-
General: No Apparent Distress
HEENT: Normocephalic and Atraumatic
Respiratory: Negative Wheezes
Cardiac: Regular Rhythm and S1/S2
GI: Soft
Neuro: AO x 3
Hematologic / Lymphatic: No Lymphadenopathy
Psych: Calm
Data Reviewed
-
Total Time Spent with Patient (in minutes): 41
Labs: Labs Reviewed by me
--- NOTE | 2024-06-15 11:01 | W.DS.TRANS ---
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
-
Discharge Instructions:
Sleep Apnea Risk Intermediate
Discharge Diagnosis/Procedures L rib fractures from fall, aortic aneursym
Diet Diabetic, Carb Controlled
Activity As tolerated
Bathing Restrictions None
Other Services VN,OT,PT
Instructions:
Stand-Alone Forms:
Changes to Home Medications: No
Discharge Medications:
DC Medications w/original date entered in [employer]
allopurinol 300 mg tablet 300 mg PO DAILY 08/31/15
aspirin 81 mg chewable tablet (Hubert Chewable Low Dose Aspirin) 81 mg PO Q72H 08/31/15
nitroglycerin 0.4 mg sublingual tablet 0.4 mg sublingual [id number] PRN chest pain #25 tabs 08/31/15
empagliflozin 25 mg tablet (Jardiance) 25 mg PO DAILY 12/08/23
fluticasone fur. 100 mcg-umeclid 62.5 mcg-vilant 25 mcg inhalat.powder (Trelegy Ellipta) 1 inh inhalation R DAILY 12/08/23
meloxicam 15 mg tablet 15 mg PO DAILY 12/08/23
metformin 500 mg tablet 1,000 mg PO BID 12/08/23
rosuvastatin 40 mg tablet 40 mg PO QPM 12/08/23
sitagliptin phosphate 100 mg tablet (Januvia) 100 mg PO DAILY 12/08/23
testosterone cypionate 100 mg/mL intramuscular oil 50 mg IM Q2W 01/11/24
apixaban 5 mg tablet (Eliquis) 5 mg PO BID 06/14/24
gabapentin 100 mg capsule 300 mg PO HS 06/14/24
metoprolol succinate 50 mg tablet,extended release 24 hr (Toprol XL) 50 mg PO BID 06/14/24
sacubitril 49 mg-valsartan 51 mg tablet (Entresto) 1 tab PO BID 06/14/24
acetaminophen 325 mg tablet 650 mg (2 x 325 mg) PO Q4HPRN PRN arthritis #100 tabs 06/15/24
acetaminophen 325 mg tablet 650 mg (2 x 325 mg) PO Q6H #100 tabs 06/15/24
oxycodone 5 mg tablet 5 mg PO Q4HPRN PRN moderate pain #15 tabs 06/15/24
polyethylene glycol 3350 17 gram oral powder packet 17 g PO DAILYPRN PRN constipation #30 ea 06/15/24
Home Medication Changes
Pending Results: No
Total time spent discharging patient (in min): 41
--- NOTE | 2024-06-15 11:09 | CM ---
Md entered order for discharge.
Spoke with pt explained he was changed to inpatient status and IMM reviewed. He agrees with dc.
Referral for [facility] entered in care port.
Pts [birth year] is today.
Judith will drive him home.
PLAn Home no [facility]
[2024-06-15 11:29] LABS: Glucose - Point of Care 210 mg/dl (70-99)
[2024-06-15] MEDS: NOVOLOG FLEXPEN-LOW RESISTANCE 2 UNITS SC (11:29)
== END 2024-06-15 12:52 | disposition home health service (06) | DRG 184 ==
LOC: 3 WEST ACU 14:40
PROVIDERS: ADMITTING PHYSICIAN Internal Medicine; ATTENDING PHYSICIAN Internal Medicine; EMERGENCY PHYSICIAN Emergency Medicine; FAMILY PHYSICIAN Internal Medicine; OTHER PHYSICIAN Nurse Practitioner Acute Care; REFERRING PHYSICIAN Internal Medicine
DX: S22.42XA Multiple fractures of ribs, left side, initial encounter for closed fracture (principal); I50.32 Chronic diastolic (congestive) heart failure; I71.40 Abdominal aortic aneurysm, without rupture, unspecified; W01.0XXA Fall on same level from slipping, tripping and stumbling without subsequent striking against object, initial encounter; J44.9 Chronic obstructive pulmonary disease, unspecified; I48.0 Paroxysmal atrial fibrillation; E11.9 Type 2 diabetes mellitus without complications; I11.0 Hypertensive heart disease with heart failure; I25.10 Atherosclerotic heart disease of native coronary artery without angina pectoris; F17.210 Nicotine dependence, cigarettes, uncomplicated; S30.1XXA Contusion of abdominal wall, initial encounter; G47.33 Obstructive sleep apnea (adult) (pediatric); Z79.84 Long term (current) use of oral hypoglycemic drugs; Z79.01 Long term (current) use of anticoagulants
CPT/HCPCS: 71101; 71260; 74177; 80048; 80053; 81003; 81015; 82962; 85025; 85027; 86850; 86900; 86901; 93005; 94640; 96374; 96376; 99285; 99406; Q9967

== ENCOUNTER → 2024-07-11 12:30 | Outpatient (REF) | payer MEDICARE, OTHER, SELFPAY | LOC: WOUND 12:30 | PROVIDERS: ATTENDING PHYSICIAN Surgery; FAMILY PHYSICIAN Internal Medicine | DX: L97.212 Non-pressure chronic ulcer of right calf with fat layer exposed (principal); I87.2 Venous insufficiency (chronic) (peripheral); I73.9 Peripheral vascular disease, unspecified; I77.810 Thoracic aortic ectasia; I71.43 Infrarenal abdominal aortic aneurysm, without rupture; Z79.01 Long term (current) use of anticoagulants; I47.10 Supraventricular tachycardia, unspecified; I50.22 Chronic systolic (congestive) heart failure; I50.32 Chronic diastolic (congestive) heart failure | CPT/HCPCS: 11042; 99204 ==

== ENCOUNTER → 2024-07-18 09:46 | Outpatient (REF) | payer MEDICARE, OTHER, SELFPAY | LOC: WOUND 09:46 | PROVIDERS: ATTENDING PHYSICIAN Surgery; FAMILY PHYSICIAN Internal Medicine; REFERRING PHYSICIAN Internal Medicine Endocrinology, Diabetes & Metabolism | DX: L97.212 Non-pressure chronic ulcer of right calf with fat layer exposed (principal); I87.2 Venous insufficiency (chronic) (peripheral); I73.9 Peripheral vascular disease, unspecified; I71.43 Infrarenal abdominal aortic aneurysm, without rupture; I47.10 Supraventricular tachycardia, unspecified; I50.22 Chronic systolic (congestive) heart failure; I50.32 Chronic diastolic (congestive) heart failure; Z79.01 Long term (current) use of anticoagulants | CPT/HCPCS: 11042 ==

== ENCOUNTER → 2024-07-19 09:18 | Outpatient (REF) | payer MEDICARE, OTHER, SELFPAY ==
[2024-07-19 10:01] LABS: Glucose 94 mg/dl (70-99)
[2024-07-19 10:31] LABS: Cortisol, Random 8.5 ug/dl
== END ==
LOC: REG 09:18
PROVIDERS: ATTENDING PHYSICIAN Internal Medicine; REFERRING PHYSICIAN Internal Medicine Endocrinology, Diabetes & Metabolism
DX: E11.59 Type 2 diabetes mellitus with other circulatory complications (principal); Z79.52 Long term (current) use of systemic steroids; M62.81 Muscle weakness (generalized)
CPT/HCPCS: 36415; 82533; 82947

== ENCOUNTER → 2024-07-26 08:21 | Outpatient (REF) | payer MEDICARE, OTHER, SELFPAY | LOC: WOUND 08:21 | PROVIDERS: ATTENDING PHYSICIAN Surgery; FAMILY PHYSICIAN Internal Medicine | DX: L97.212 Non-pressure chronic ulcer of right calf with fat layer exposed (principal); I87.2 Venous insufficiency (chronic) (peripheral); I73.9 Peripheral vascular disease, unspecified; I77.810 Thoracic aortic ectasia; I71.43 Infrarenal abdominal aortic aneurysm, without rupture; I47.10 Supraventricular tachycardia, unspecified; I50.22 Chronic systolic (congestive) heart failure; I50.32 Chronic diastolic (congestive) heart failure; Z79.01 Long term (current) use of anticoagulants | CPT/HCPCS: 11042; 74174; 93922; 93971; Q9967 ==

== ENCOUNTER → 2024-08-01 14:45 | Outpatient (REF) | payer MEDICARE, OTHER, SELFPAY | LOC: WOUND 14:45 | PROVIDERS: ATTENDING PHYSICIAN Surgery; FAMILY PHYSICIAN Internal Medicine | DX: L97.212 Non-pressure chronic ulcer of right calf with fat layer exposed (principal); I87.2 Venous insufficiency (chronic) (peripheral); I73.9 Peripheral vascular disease, unspecified; I77.810 Thoracic aortic ectasia; I47.10 Supraventricular tachycardia, unspecified; I50.22 Chronic systolic (congestive) heart failure; I50.32 Chronic diastolic (congestive) heart failure; Z79.01 Long term (current) use of anticoagulants | CPT/HCPCS: 11042 ==

== ENCOUNTER → 2024-08-19 10:04 | Outpatient (REF) | payer MEDICARE, OTHER, SELFPAY | LOC: WOUND 10:04 | PROVIDERS: ATTENDING PHYSICIAN Surgery; FAMILY PHYSICIAN Internal Medicine | DX: L97.212 Non-pressure chronic ulcer of right calf with fat layer exposed (principal); I87.2 Venous insufficiency (chronic) (peripheral); I73.9 Peripheral vascular disease, unspecified; I71.43 Infrarenal abdominal aortic aneurysm, without rupture; I47.10 Supraventricular tachycardia, unspecified; I50.22 Chronic systolic (congestive) heart failure; I50.32 Chronic diastolic (congestive) heart failure; Z79.01 Long term (current) use of anticoagulants | CPT/HCPCS: 11042 ==

== ENCOUNTER → 2024-08-20 07:50 | Outpatient (REF) | payer MEDICARE, OTHER, SELFPAY ==
[2024-08-20 09:11] LABS: ALT (SGPT) 16 U/L (0-50); AST (SGOT) 18 U/L (17-59); Albumin 3.8 g/dl (3.5-5.0); Alkaline Phosphatase 73 U/L (38-126); Blood Urea Nitrogen 21 mg/dl (9-20); Calcium 9.8 mg/dl (8.4-10.2); Carbon Dioxide 27 mmol/L (22-30); Chloride 108 mmol/L (98-107); Glucose 140 mg/dl (70-99); HDL Cholesterol 38 mg/dl; LDL Cholesterol, Calculated 43 mg/dl; Potassium 5.1 mmol/L (3.5-5.1); Sodium 144 mmol/L (135-145); Total Bilirubin 0.3 mg/dl (0.2-1.3); Total Cholesterol 106 mg/dl (50-199); Total Protein 6.2 g/dl (6.3-8.2); Triglyceride 129 mg/dl (10-149); Very Low Density Lipoprotein 25 mg/dl (0-30); eGFR > 60.00
[2024-08-20 09:14] LABS: Microalbumin/creatinine Ratio 12.5 mg/g
[2024-08-20 09:38] LABS: TSH 1.42 uIU/ml (0.47-4.68)
[2024-08-20 10:09] LABS: Glycohemoglobin (HgbA1c) 6.4 % (4.0-5.6)
== END ==
LOC: REG 07:50
PROVIDERS: ATTENDING PHYSICIAN Internal Medicine Endocrinology, Diabetes & Metabolism; FAMILY PHYSICIAN Internal Medicine; OTHER PHYSICIAN Internal Medicine
DX: E11.9 Type 2 diabetes mellitus without complications (principal); E04.2 Nontoxic multinodular goiter; E29.1 Testicular hypofunction
CPT/HCPCS: 36415; 80053; 80061; 82043; 82570; 83036; 84403; 84443

== ENCOUNTER → 2024-08-28 10:53 | Outpatient (REF) | payer MEDICARE, OTHER, SELFPAY ==
[2024-08-28 12:16] LABS: ALT (SGPT) 16 U/L (0-50); AST (SGOT) 14 U/L (17-59); Albumin 4.1 g/dl (3.5-5.0); Alkaline Phosphatase 86 U/L (38-126); Blood Urea Nitrogen 24 mg/dl (9-20); Calcium 9.5 mg/dl (8.4-10.2); Carbon Dioxide 24 mmol/L (22-30); Chloride 109 mmol/L (98-107); Direct Bilirubin 0.3 mg/dl (0.0-0.4); Glucose 70 mg/dl (70-99); HDL Cholesterol 39 mg/dl; LDL Cholesterol, Calculated 47 mg/dl; Sodium 142 mmol/L (135-145); Total Bilirubin 0.3 mg/dl (0.2-1.3); Total Cholesterol 117 mg/dl (50-199); Total Protein 6.4 g/dl (6.3-8.2); Triglyceride 155 mg/dl (10-149); Very Low Density Lipoprotein 31 mg/dl (0-30); eGFR > 60.00
== END ==
LOC: RAD 10:53
PROVIDERS: ATTENDING PHYSICIAN Internal Medicine Cardiovascular Disease; FAMILY PHYSICIAN Internal Medicine; REFERRING PHYSICIAN Physician Assistant Surgical
DX: I42.8 Other cardiomyopathies (principal); Z72.0 Tobacco use; J98.11 Atelectasis; M25.512 Pain in left shoulder; E11.59 Type 2 diabetes mellitus with other circulatory complications; E78.5 Hyperlipidemia, unspecified; I10 Essential (primary) hypertension
CPT/HCPCS: 36415; 71046; 80053; 80061; 82248

== ENCOUNTER → 2024-09-03 12:48 | Outpatient (REF) | payer MEDICARE, OTHER, SELFPAY | LOC: WOUND 12:48 | PROVIDERS: ATTENDING PHYSICIAN Surgery; FAMILY PHYSICIAN Internal Medicine | DX: L97.212 Non-pressure chronic ulcer of right calf with fat layer exposed (principal); I87.2 Venous insufficiency (chronic) (peripheral); I73.9 Peripheral vascular disease, unspecified; I77.810 Thoracic aortic ectasia; I71.43 Infrarenal abdominal aortic aneurysm, without rupture; I47.10 Supraventricular tachycardia, unspecified; I50.22 Chronic systolic (congestive) heart failure; Z79.01 Long term (current) use of anticoagulants; I50.32 Chronic diastolic (congestive) heart failure | CPT/HCPCS: 11042 ==

== ENCOUNTER 2024-09-11 06:24 | Inpatient (IN) | payer MEDICARE, OTHER, SELFPAY ==
[2024-09-06 10:36] VITALS: BMI 33.9
[2024-09-06 11:05] LABS: % Basophils 0.6 % (0-2); % Eosinophils 1.1 % (0-6); % Immature Granulocytes 0.4 % (0-0.5); % Lymphocytes 26.3 % (20.5-51.1); % Monocytes 8.2 % (1.7-9.3); % Neutrophils 63.4 % (42.2-75.2); Absolute Basophils 0.1 10^3/uL (0-0.2); Absolute Eosinophils 0.1 10^3/uL (0-0.7); Absolute Monocytes 0.9 10^3/uL (0.1-0.6); Absolute Neutrophils 7.2 10^3/uL (1.4-6.5); Hematocrit 43.8 % (39.0-52.0); Hemoglobin 13.4 g/dL (13.0-18.0); Mean Corp Hgb Conc. 30.6 g/dL (33.0-37.0); Mean Corpuscular Hgb 27.7 pg (27.0-31.0); Mean Corpuscular Volume 90.7 fL (80.0-94.0); Mean Platelet Volume 8.4 fL (7.4-10.4); Nucleated Red Blood Cells % 0 % (-); Platelet Count 265 10^3/uL (130-400); Red Blood Cell Count 4.83 10^6/uL (4.70-6.10); Red Cell Dist. Width 16.2 % (11.5-14.5); White Blood Cell Count 11.4 10^3/uL (4.8-10.8)
[2024-09-06 11:18] LABS: INR 0.97; PT 13.1 Sec (11.4-14.6)
[2024-09-06 11:19] LABS: APTT 32.6 Sec (23.4-35.0)
[2024-09-06 12:09] LABS: Blood Urea Nitrogen 29 mg/dl (9-20); Calcium 9.5 mg/dl (8.4-10.2); Carbon Dioxide 27 mmol/L (22-30); Chloride 105 mmol/L (98-107); Estimated Creatinine Clearance 63 ml/min; Glucose 57 mg/dl (70-99); Potassium 4.4 mmol/L (3.5-5.1); Sodium 142 mmol/L (135-145); eGFR > 60.00
[2024-09-11] VITALS (7 sets, daily range): BP systolic 105–125; BP diastolic 67–79; BMI 33.5
--- NOTE | 2024-09-11 07:03 | W.SUR.PREOP ---
Pre-Operative Surgical Note
-
I have examined this patient prior to the performance of the scheduled procedure.
The patient's condition is unchanged from the time of the current History and
Physical and the patient is able to undergo the scheduled procedure.
[2024-09-11] MEDS: PERIDEX 0.12% ORAL RINSE 15 ML PO (07:17)
[2024-09-11] MEDS: BACTROBAN NASAL 1 GRAM NASAL (07:17)
[2024-09-11 07:34] LABS: Glucose - Point of Care 103 mg/dl (70-99)
--- NOTE | 2024-09-11 09:20 | W.SUR.POST ---
Addendum entered and electronically signed by TIERA Dominguez 09/11/24 09:23:
Estimated Blood Loss: 20ml
Original Note:
Surgical Immediate Post Op
Note
Pre Op Diagnosis: AAA
Post Op Diagnosis:AAA
Procedure Performed: EVAR
Primary Surgeon: Hadley Patton MD
Senior J2Ee Developer: TIERA Velasquez
Anesthesia: GETA
Estimated Blood Loss:
Fluids: See anesthesia flowsheet
Drains/Shunts: N/A
Specimens/Cultures: N/A
Doppler/Duplex/Angio (Y/N): N
Complications: None
Operative Findings: Successful endovascular repair of AAA with BL palpable DP pulse post operatively
[2024-09-11 09:48] LABS: Glucose - Point of Care 184 mg/dl (70-99)
[2024-09-11] MEDS: DILAUDID 0.5 MG IV ×6 (09:53→19:45)
[2024-09-11 10:03] LABS: Hematocrit 38.6 % (39.0-52.0); Mean Corp Hgb Conc. 31.1 g/dL (33.0-37.0); Mean Platelet Volume 8.4 fL (7.4-10.4); Platelet Count 218 10^3/uL (130-400); Red Blood Cell Count 4.29 10^6/uL (4.70-6.10); Red Cell Dist. Width 16.3 % (11.5-14.5); White Blood Cell Count 14.7 10^3/uL (4.8-10.8)
[2024-09-11 10:21] LABS: Blood Urea Nitrogen 22 mg/dl (9-20); Calcium 8.4 mg/dl (8.4-10.2); Carbon Dioxide 21 mmol/L (22-30); Chloride 111 mmol/L (98-107); Estimated Creatinine Clearance 82 ml/min; Glucose 191 mg/dl (70-99); Potassium 4.9 mmol/L (3.5-5.1); Sodium 138 mmol/L (135-145); eGFR > 60.00
[2024-09-11] MEDS: NSS 1000 IV ×2 (11:00→16:57)
--- NOTE | 2024-09-11 11:00 | PTCARENOTE ---
Received patient from PACU, Pt A&Ox4, able to move all four extremities, B/L DP pulse present with Doppler, pain reassessed and intervened, on NC 3L, NSR with 1st AVB, Right radial art line, Mendez in place.
[2024-09-11 11:38] LABS: Glucose - Point of Care 142 mg/dl (70-99)
--- NOTE | 2024-09-11 11:50 | CON.INTV ---
Consultation
Consultation Request
Date/Time Consultation Requested: 09/11/2024
Date/Time Consultation Performed: 09/11/2024
Requesting Provider: Dr. Patton
Performing Provider: Dr. Hu
Reason for Consultation: s/p EVAR
Medical History
-
Chief Complaint: Elective EVAR
History of Present Illness:
79-year-old male with a past medical history of AAA, KENDRA on CPAP, GERD, DM type II, gout and hyperlipidemia who presents for elective EVAR. Patient known to vascular surgery service with last visit on 08/05/[address] Patton. Risks and benefits of
vascular intervention were reviewed and patient agreed to endovascular repair of his AAA. Today he underwent endovascular repair of his infrarenal abdominal aortic aneurysm with bifurcated modular endoprosthesis with unilateral iliac limb
extension. There were no complications, and he was transferred to the ICU postoperatively for further care. Cryogenic Transport Driver services consulted for additional management/recommendations.
When I saw the pt he was resting in bed in NAD. Currently on NS @ 80cc/hr. HR 75 and BP 113/66. SpO2 94% on room air.
PMHx: COPD, KENDRA on BiPAP, Arthritis, GERD, CAD, Hypertension, Diabetes type II, DJD, Gout, High cholesterol, Sleep Apnea, Bronchiectasis, Stented coronary artery, aortic aneurysm, Opiate dependence, former tobacco use, atrial fibrillation on
Eliquis, Closed fracture of left tibia
PSHx: Right knee ACL surgery, cardiac ablation
Past Medical History
Past Medical History: Other (Above as per HPI)
Past Surgical History: Other (Above as per HPI)
Social History
Tobacco: Former Smoker (Quit 2021; 40 pack year Hx; vaped for 1 year before quitting)
Alcohol: None
Drug: None
Family History
Family History: Other (Father: brain tumor; Mother: Alzheimer's dementia)
Allergies / Home Medications
Allergies
Allergy/AdvReac Type Severity Reaction Status Date / Time
No Known Allergies Allergy Verified 09/11/24 07:28
Home Medications
�Medication �Instructions �Recorded �Confirmed �Last Taken �Type
allopurinol 300 mg tablet 300 mg PO DAILY 08/31/15 09/11/24 09/11/24 06:00 History
aspirin 81 mg chewable tablet 81 mg PO Q72H 08/31/15 09/11/24 09/09/24 08:00 History
(Hubert Chewable Low Dose Aspirin)
nitroglycerin 0.4 mg sublingual 0.4 mg sublingual [id number] PRN 08/31/15 09/11/24 Unknown Rx
tablet chest pain #25 tabs
empagliflozin 25 mg tablet 25 mg PO DAILY 12/08/23 09/11/24 09/09/24 08:00 History
(Jardiance)
fluticasone fur. 100 mcg-umeclid 1 inh inhalation R DAILY 12/08/23 09/03/24 12/08/23 06:00 History
62.5 mcg-vilant 25 mcg
inhalat.powder (Trelegy Ellipta)
meloxicam 15 mg tablet 15 mg PO DAILY 12/08/23 09/11/24 09/09/24 08:00 History
metformin 500 mg tablet 1,000 mg PO BID 12/08/23 09/11/24 09/11/24 06:00 History
rosuvastatin 40 mg tablet 40 mg PO QPM 12/08/23 09/11/24 09/10/24 20:00 History
apixaban 5 mg tablet (Eliquis) 5 mg PO BID 06/14/24 09/11/24 09/09/24 08:00 History
gabapentin 100 mg capsule 300 mg PO HS 06/14/24 09/11/24 09/10/24 20:00 History
metoprolol succinate 50 mg 50 mg PO BID 06/14/24 09/11/24 09/10/24 20:00 History
tablet,extended release 24 hr
(Toprol XL)
sacubitril 49 mg-valsartan 51 mg 1 tab PO BID 06/14/24 09/11/24 09/08/24 08:00 History
tablet (Entresto)
acetaminophen 325 mg tablet 650 mg (2 x 325 mg) PO Q4HPRN PRN 06/15/24 09/03/24 Unknown Rx
arthritis #100 tabs
polyethylene glycol 3350 17 gram 17 g PO DAILYPRN PRN constipation 06/15/24 09/11/24 Unknown Rx
oral powder packet #30 ea
glimepiride 2 mg tablet 4 mg PO DAILY 09/03/24 09/11/24 09/09/24 08:00 History
oxycodone 5 mg tablet 10 mg PO Q4HPRN PRN moderate pain 09/03/24 09/11/24 09/10/24 20:00 History
tamsulosin 0.4 mg capsule 0.4 mg PO BID 09/03/24 09/11/24 09/11/24 06:00 History
testosterone 1.5 ml IM Q2W 09/03/24 09/11/24 Unknown History
Review of Systems
-
History Source: Patient
All other systems: Negative unless noted
Vitals / Labs / Diagnostic Testing
Vital Signs
Temp Pulse Resp BP Pulse Ox
97 F 78 14 110/70 98
09/11/24 11:10 09/11/24 13:45 09/11/24 13:45 09/11/24 11:00 09/11/24 13:45
Lab Data
09/11/24 09:48
09/11/24 09:48
Diagnostic Testing:
Physical Exam
-
HEENT: Normocephalic and Anicteric
Cardiovascular: S1/S2 and Peripheral Edema (negative)
Respiratory: Clear, Wheeze (negative), Rales (negative), Rhonchi (negative) and Non-Labored Respirations
GI: Soft, Non Distended, Non Tender and Normal Bowel Sounds
Neurology: AO x 3 and Tremors (negative)
Skin: Warm and Dry
General: Respiratory Distress (negative), Comfortable, Chills (negative) and Sweats (negative)
Assessment
-
Assessment: 79-year-old male with a past medical history of AAA, KENDRA on CPAP, GERD, DM type II, gout and hyperlipidemia who presents for elective EVAR. Patient known to vascular surgery service with last visit on 08/05/[address] Patton. Risks and
benefits of vascular intervention were reviewed and patient agreed to endovascular repair of his AAA. Today he underwent endovascular repair of his infrarenal abdominal aortic aneurysm with bifurcated modular endoprosthesis with unilateral iliac
limb extension. There were no complications, and he was transferred to the ICU postoperatively for further care. Cryogenic Transport Driver services consulted for additional management/recommendations.
Impression:
#Infrarenal abdominal aortic aneurysm s/p endovascular repair with bifurcated modular endoprosthesis with unilateral iliac limb extension (POD #0)
#Leukocytosis - likely reactive
#Anemia
#DM type II c/b hyperglycemia (HbA1C: 6.4 on 08/20/2024)
#COPD on Trelegy as outpatient
#Former tobacco smoker (Quit 2021; 40 pack year Hx; vaped for 1 year before quitting)
#KENDRA on nocturnal BiPAP 16/12ccB6D
Plan:
Postoperative surgical intensive care unit monitoring
Supplemental oxygen as needed to maintain SpO2 88-95%
prn nebulized bronchodilators - not currently bronchospastic
Incentive spirometry encouraged 10x per hour for at least 4 hrs a day
Aspiration precautions
Pain control
Neuro and vascular checks per protocol
Maintain MAP>65
Replete electrolytes with K>4, Mg>2
Maintain euglycemia with goal BG 140-180
Continue BiPAP with sleep for Hx of KENDRA - he has brought in his own machine
Start Symbicort 80mcg + Spiriva as he takes Trelegy at home
Vascular surgery following-correspondence and operative notes reviewed
Transfuse blood products as needed to keep Hb>7g/dL, and plt>50k (given post-operative status)
DVT prophylaxis
Early nutrition
Early mobilization
Continue outpatient pulmonary follow up after hospitalization - last visit 01/24/2024 with TIERA Sullivan. His next appt is scheduled for 10/23/2024 - 1145AM
Critical care statement: A total of 44 minutes of critical care time was provided for this patient today. This includes management of unstable vital signs, evaluation of the patient at bedside, reviewing the patient's pertinent medical records
including radiographs, microbiology, laboratory evaluations, and discussion with primary team, consultants, pharmacy, nutrition, physical therapy, case management, charge nurse, critical care nursing, and respiratory therapy.
[2024-09-11] MEDS: NOVOLOG FLEXPEN-MODERATE RESISTANCE SC (12:00)
--- NOTE | 2024-09-11 12:00 | PTCARENOTE ---
Reassessed the patient, neurovascular assessments unchanged with Doppler, B/L Groin puncture sites dry, intact with surgical adhesive, open to air.
--- NOTE | 2024-09-11 12:00 | PTCARENOTE ---
Reasessed the patient, neurovascular assessments unchanged with Doppler, p
--- NOTE | 2024-09-11 12:40 | OR.RPT ---
Addendum entered and electronically signed by Hadley Patton MD 09/11/24 12:42:
Addendum:
Fluoroscopy time: 17.5 minutes.
Dose: 440 mGy.
DAP: 97.07.
Original Note:
Operative Report
Operative Report
PROCEDURE DATE: 09/11/2024
Preoperative diagnosis: Abdominal aortic aneurysm, infrarenal.
Postoperative diagnosis: Same
Procedure:
1. Endovascular repair of infrarenal abdominal aortic aneurysm with bifurcated modular endoprosthesis (Nelson C3 Excluder) with unilateral iliac limb extension.
2. Percutaneous bilateral common femoral artery closure.
3. Supervision and interpretation.
Surgeon: Abdi
Machine Mover: Jaky
Complications: None
Anesthesia: General
Indications for procedure:
Abdominal aortic aneurysm. Met size criteria for repair. Risk/benefits/alternatives were all fully discussed with endovascular aneurysm repair. Patient was a slightly higher risk candidate based on history of tobacco use/COPD/calcified arteries,
tortuous access vessels. Risk/benefits/alternatives of were discussed. He understood and wished to proceed.
Description of procedure:
Patient was identified brought to the operating room placed on the table in supine position. After the adequate administration of anesthesia and perioperative antibiotics he was prepped and draped in the standard surgical fashion. A standard
preoperative timeout was undertaken and everybody was in agreement the plan. Bilateral common femoral artery access was obtained under direct duplex ultrasound guidance. 6 Guamanian sheaths were placed over 0.035 inch wires. Note the bifurcation in
the left side was slightly high as noted on the CT scan but careful access was obtained via duplex assistance. Next, small 1 cm incisions were made around the sheath entry sites bilaterally. Blunt dissection was undertaken with hemostats to
facilitate percutaneous suture delivery. Next, using the ProGlide suture system, percutaneous sutures were deployed at the 10:00 and 2 o'clock position bilaterally in the standard fashion. Suture strands were tagged outside the skin. Note due to
the tortuosity of the iliac and calcified plaque at the origin of the left common iliac artery, I difficulty passing the Pro-glide delivery device. Therefore I had to gain wire access into the aorta carefully with the assistance of a KMP catheter,
and then advanced the Pro-glide all the way up into the aorta (past the point where we typically remove the wire) in order to successfully deployed. I did this for both of the Pro-glide's on the left side. Upon successful Pro-glide delivery x 2 in
each groin, we exchanged for 11 Guamanian sheaths bilaterally. Next using a KMP catheter, I guided wires into the supraceliac aorta from bilateral access sites, and exchanged for Lunderquist wires.. The patient was given 6000's of intravenous
heparin. On the right side, I exchanged for a Nelson dry seal 12 Guamanian sheath (proposed contralateral limb side). On the right side, I exchanged for a 16 Guamanian Nelson dry seal sheath. These sheaths were advanced into the aorta bilaterally. With
the stiffer wires in place, the tortuosity nicely straightened out.
I then brought the main body device into place. It was oriented under fluoroscopy in the field before loading it over the wire and inserting it through the left-sided sheath. I had oriented such that the limbs would maintain normal orientation
with contralateral gate being oriented to the right side. I had elected for this orientation and main body delivery) left sided sheath) secondary to the tortuosity and what I thought would be the easier cannulation of the contralateral gate (I felt
that main body up the left side would orient the gate to the right and there was less angulation to contend against. The main body was a Nelson C3 Excluder 23 mm x 14.5 mm x 14 cm length (Nelson [id number]). Once this was advanced to the level of the
juxtarenal aorta, power injection aortography was obtained via the right-sided pigtail catheter. (Note I had placed the pigtail up the right sided sheath, but had maintained the Lunderquist wire and had secondarily punctured the sheath and placed a
nick wire in order to put the pigtail out. The reason I had done this was that I did not want the sheath to end up ambulating secondary to the iliac angulation). This aortogram was done in the appropriate obliquity based on the CT scan imaging
prior (AZERI). The left renal artery which was the lower 1 was visualized well as was the right. These were marked on the screen. Next, the left sided dry seal sheath was withdrawn to the level of the contralateral gate. I confirmed positioning of
the contralateral gate and then began deployment of the stent graft just inferior to the left renal artery. I was very happy with its positioning and deployed it to the level of the contralateral gate which was fully deployed now. I was very
satisfied. I then exchanged my pigtail catheter over a floppy Glidewire, and having pulled it down below the contralateral gate I then used a KMP catheter and the floppy hydrophilic Glidewire to attempt cannulate the contralateral gate. I had some
trouble initially, but once I removed the secondary Lunderquist wire, I was unable to cannulate the contralateral gate. Once I did so I was then able to advance my pigtail catheter through the gate, spinning the catheter to confirm that I was in
the true lumen of the graft. Next I performed aortogram again to confirm positioning of the proximal aspect of the stent graft with good filling of the renal arteries.
At this point I then placed Lunderquist wire through the right sided pigtail catheter and perform retrograde pelvic angiogram (injection through sheath). This was done in the appropriate obliquity as well. The iliac bifurcation was marked on the
screen, and the contralateral iliac limb length was selected. I then used a contralateral limb with a 14 mm x 10cm contralateral iliac limb (Nelson [id number]). This was positioned nicely with suitable overlap in the contralateral gate (3 cm) and the
distal aspect just short of the iliac bifurcation. Once I completed this, I withdrew my sheath on the left side slightly further back in the pelvis. Pelvic angiogram demonstrated the iliac bifurcation and I noted that the distal aspect of the
ipsilateral iliac limb was close to the bifurcation if not right on it. I took this into account for the neck step. I then released the top constraint of the C3 Nelson excluder in the standard fashion. I then deployed the remainder of the
ipsilateral limb after had withdrawn the sheath back, but while doing so maintaining forward pressure so as to try to get it to land slightly proximally so as not to cover the internal iliac artery. I then withdrew the delivery device.
Next a molding balloon was used to molded the proximal and distal seal zones as well as the overlap sites. Power injection completion aortography was now performed that demonstrated excellent positioning of the graft. No evidence of endoleak was
noted (no type I-IV endoleak noted). Both renal arteries filled well, and both internal and external iliac arteries filled well. Next I exchanged my pigtail catheter back for a Mirriaderquist wire. Next, I sequentially removed the sheath while
cinching down the percutaneous sutures. This was initially done on the right side and then on the left. Once hemostasis was noted the wire was then withdrawn, the knot was tightened with a knot pusher. Hemostasis was confirmed. The knot was then
locked and the suture strands trimmed. This was done as noted on the right initially and then on the left. Hemostasis was fully achieved bilateral groins with good femoral pulses bilaterally. The small skin incisions were then closed with 4-0
Monocryl subcuticular stitch and Dermabond was applied. Patient tolerated procedure well. He had palpable PT pulses bilaterally upon completion. All sponge, needle, instrument counts were correct at the end of the case. The patient was
transferred to the recovery room in stable condition.
[2024-09-11] MEDS: ROXICODONE 5 MG PO (14:32)
--- NOTE | 2024-09-11 15:55 | WOUNDNOTE ---
[facility] RN NOTE: Reviewed chart and met with patient. Patient admitted for AAA repair. At time of assessment patient was s/p procedure and had to remain on his back. Patient follows at wound center for right da silva wound which occurred after a fall. The
wound is shallow and pale pink with some yellow fibrin. Patient also wears compression daily and has a +pedal pulse. Local wound care provided as ordered with Hydrogel and ILA applied. Orders confirmed with Cristy Long NP. RN Ayah given update.
Patient plans to continue to follow up at [facility] after discharge. Will follow as needed.
--- NOTE | 2024-09-11 16:03 | WOUNDNOTE ---
Right Leg Wound
[2024-09-11] MEDS: NOVOLOG FLEXPEN-MODERATE RESISTANCE 1 UNITS SC (16:57)
[2024-09-11 17:05] LABS: Glucose - Point of Care 151 mg/dl (70-99)
--- NOTE | 2024-09-11 17:32 | PTCARENOTE ---
Patient now on RA, can use home CPAP at night for sleep. Pain was reassessed and intervened. [facility] and unable to send it to home, this RN sent the medication to the pharmacy, the yellow copy is in the patient's
chart.
[2024-09-11] MEDS: CRESTOR 40 MG PO (18:20)
[2024-09-11] MEDS: FLOMAX 0.4 MG PO (19:45)
[2024-09-11] MEDS: ENTRESTO 49 MG/51 MG 1 TAB PO (19:45)
[2024-09-11] MEDS: TOPROL XL 50 MG PO (19:45)
[2024-09-11] MEDS: HEPARIN 5000 UNITS SC (19:46)
[2024-09-11] MEDS: XANAX 0.5 MG PO (19:54)
[2024-09-11] MEDS: SYMBICORT 80/4.5 MCG INHALER 2 PUFF INH (20:16)
[2024-09-11 21:42] LABS: Glucose - Point of Care 128 mg/dl (70-99)
--- NOTE | 2024-09-11 21:48 | PTCARENOTE ---
Received patient AAOx3, following commands, reporting 8/10 pain all over body and in b/l groin. Morphine given. Q1 neurovascular checks until 1100. NS 90s with a first degree block, BP 120s/60s, normothermic. Doppler pedal pulses b/l, weak PT
pulses. 93% on room air, lung sounds diminished throughout. Abdomen obese, round, positive bowel sounds. Temp sensing clark in place draining yellow urine. B/l groin puncture wounds with surgical adhesive present, approximated. Right da silva wound
dressing CDI. PIVs patent, WNL. NSS gtt ongoing per order. Right radial barrie zeroed, flushed, and leveled. Call coe within reach.
[2024-09-11] MEDS: NEURONTIN 300 MG PO (22:14)
--- NOTE | 2024-09-12 02:22 | PTCARENOTE ---
Patient assessment unchanged from previous, hourly neurovascular checks ongoing. Call coe within reach.
[2024-09-12] MEDS: NSS 1000 IV (04:55)
[2024-09-12 04:57] VITALS: BMI 33.9
[2024-09-12 05:17] LABS: Hematocrit 35.4 % (39.0-52.0); Hemoglobin 11.2 g/dL (13.0-18.0); Mean Corp Hgb Conc. 31.6 g/dL (33.0-37.0); Mean Corpuscular Volume 88.5 fL (80.0-94.0); Mean Platelet Volume 8.6 fL (7.4-10.4); Platelet Count 205 10^3/uL (130-400); Red Cell Dist. Width 16.1 % (11.5-14.5); White Blood Cell Count 15.8 10^3/uL (4.8-10.8)
--- NOTE | 2024-09-12 05:37 | PTCARENOTE ---
Labs sent, patient assessment unchanged from previous. Call coe within reach.
[2024-09-12 05:41] LABS: Blood Urea Nitrogen 22 mg/dl (9-20); Calcium 8.6 mg/dl (8.4-10.2); Carbon Dioxide 20 mmol/L (22-30); Chloride 114 mmol/L (98-107); Estimated Creatinine Clearance 71 ml/min; Glucose 130 mg/dl (70-99); Potassium 4.3 mmol/L (3.5-5.1); Sodium 139 mmol/L (135-145); eGFR > 60.00
[2024-09-12] MEDS: SPIRIVA RESPIMAT 2.5 MCG 2 PUFF INH (07:30)
[2024-09-12] MEDS: SYMBICORT 80/4.5 MCG INHALER 2 PUFF INH (07:30)
--- NOTE | 2024-09-12 07:37 | W.PN.VS ---
Addendum entered and electronically signed by TIERA Velasquez 09/12/24 10:29:
RN notified me of change in rhythm on monitor. EKG read second-degree type I. Patient is asymptomatic.
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 No change in follow-up for cardiology, keep at 6 months.
Addendum entered and electronically signed by Hadley Patton MD 09/12/24 09:06:
Seen and examined with KIMBERLY Hooker. Agree with findings as noted below. Patient was without any complaints. [place] good. Abdomen soft, nondistended, nontender. Groins flat bilaterally. No hematoma. Small incisions clean dry and intact
bilaterally. Feet are warm with 2+ palpable PT pulses bilaterally. Plan/as discussed and noted below.
Original Note:
Today's Communication / Plan
-
Seen and assessed with Dr. Patton
Assessment/Plan
-
Postop day 1 EVAR
Plan:
- DC A-line
- DC IV fluids
- Out of bed/ambulate
- DC Mendez
- Likely discharge later today
Subjective Data
-
Date of Service: September 12, 2024
Patient seen at bedside this a.m. with Dr. Patton. Patient offers no complaints at this time. No events overnight.
Objective Data
-
Vital Signs
Temp Pulse Resp BP Pulse Ox
98.6 F 67 17 110/70 92
09/12/24 03:30 09/12/24 06:15 09/12/24 06:15 09/11/24 11:00 09/12/24 06:15
Intake and Output
09/11/24 09/12/24 09/13/24
06:59 06:59 06:59
Intake Total 2019
Output Total 2830 / 2830
Balance -810 / -810
Intake:
Oral fluids 420 / 420
IV fluids (Total) 1599 / 1599
Nss 1,000 ml @ 80 mls/hr IV . 1599
[id number] CHARLEE Rx#:[id number]
Output:
Urine, Mendez 283 / 2830
Lab Results
09/12/24 04:53
09/12/24 04:53
Calcium 8.6 mg/dl (8.4-10.2) 09/12/24 04:53
Physical Exam
-
AAO x 3
No tachypnea on room air
No tachycardia
Abdomen soft
Groin sites clean, dry, intact, soft, flat
Feet warm and pink
[2024-09-12 07:45] LABS: Glucose - Point of Care 95 mg/dl (70-99)
[2024-09-12] MEDS: NOVOLOG FLEXPEN-MODERATE RESISTANCE SC ×2 (07:56→12:22)
[2024-09-12] MEDS: LOW STRENGTH ASPIRIN 81 MG PO (07:57)
[2024-09-12] MEDS: AMARYL 4 MG PO (07:57)
[2024-09-12] MEDS: ENTRESTO 49 MG/51 MG 1 TAB PO (07:57)
[2024-09-12] MEDS: ZYLOPRIM 300 MG PO (07:57)
[2024-09-12] MEDS: FLOMAX 0.4 MG PO (07:57)
[2024-09-12] MEDS: FARXIGA 10 MG PO (07:57)
[2024-09-12] MEDS: HEPARIN SC (07:58)
[2024-09-12] MEDS: TOPROL XL 50 MG PO (08:00)
--- NOTE | 2024-09-12 08:00 | PTCARENOTE ---
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 patient is AAOx4. NV checks remain unchanged. patient is on room air, lungs coarse. He is sinus rhythm on monitor. He is ordered 2000 maurice diabetic diet. clark catheter draining yellow urine. Vascular team in
to see patient. order to D/C clark and a-line and get OOB. will review orders, potential D/C this afternoon.
[2024-09-12] MEDS: ROXICODONE 5 MG PO ×2 (08:11→12:55)
--- NOTE | 2024-09-12 08:27 | W.PN.INTV ---
Today's Communication / Plan
Recommendations
Up OOB as tolerated
Pain control
Encourage incentive spirometer
Continue BiPAP with sleep
Outpatient pulmonary follow up after hospitalization - last visit 01/24/2024 with TIERA Sullivan. His next appt is scheduled for 10/23/2024 - 1145AM; rec'd to keep appt
Patient being prepared for discharge home. No additional recommendations at this time. Executive Search Consultant/Pulmonary service will now sign off. Please reconsult if there are any additional questions/concerns, or if patient's respiratory status
deteriorates.
Assessment
-
Assessment: 79-year-old male with a past medical history of AAA, KENDRA on CPAP, GERD, DM type II, gout and hyperlipidemia who presents for elective EVAR. Patient known to vascular surgery service with last visit on 08/05/[address] Patton. Risks and
benefits of vascular intervention were reviewed and patient agreed to endovascular repair of his AAA. Today he underwent endovascular repair of his infrarenal abdominal aortic aneurysm with bifurcated modular endoprosthesis with unilateral iliac
limb extension. There were no complications, and he was transferred to the ICU postoperatively for further care. Executive Search Consultant services consulted for additional management/recommendations.
Impression:
#Infrarenal abdominal aortic aneurysm s/p endovascular repair with bifurcated modular endoprosthesis with unilateral iliac limb extension (POD #1)
#Leukocytosis - likely reactive
#Anemia
#DM type II c/b hyperglycemia (HbA1C: 6.4 on 08/20/2024)
#COPD on Trelegy as outpatient
#Former tobacco smoker (Quit 2021; 40 pack year Hx; vaped for 1 year before quitting)
#KENDRA on nocturnal BiPAP [id number]
#A-fib on Eliquis as an outpatient
Plan:
Postoperative surgical intensive care unit monitoring
Supplemental oxygen as needed to maintain SpO2 88-95%
prn nebulized bronchodilators - not currently bronchospastic
Incentive spirometry encouraged 10x per hour for at least 4 hrs a day
Aspiration precautions
Pain control
Neuro and vascular checks per protocol
Maintain MAP>65
Replete electrolytes with K>4, Mg>2
Maintain euglycemia with goal BG 140-180
Continue BiPAP with sleep for Hx of KENDRA - he has brought in his own machine
Continue Symbicort 80mcg + Spiriva as he takes Trelegy at home -> resume home inhaler upon discharge
Vascular surgery following-correspondence and operative notes reviewed
Transfuse blood products as needed to keep Hb>7g/dL, and plt>50k (given post-operative status)
DVT prophylaxis - defer resuming Eliquis to vascular surgery team
Early nutrition
Early mobilization
Continue outpatient pulmonary follow up after hospitalization - last visit 01/24/2024 with TIERA Sullivan. His next appt is scheduled for 10/23/2024 - 1145AM
Patient being prepared for discharge home. No additional recommendations at this time. Executive Search Consultant/Pulmonary service will now sign off. Thank you for allowing us to be involved in the care of this patient. Please reconsult if there are any
additional questions/concerns, or if patient's respiratory status deteriorates.
Total time spent today was 42 minutes for this encounter. Time includes reviewing laboratory test/imaging results, reviewing pertinent medical records, obtaining and reviewing medical history, performing an appropriate exam, ordering medications,
tests and procedures. Time also includes documentation of this encounter, coordinating patient care and communicating with other healthcare professionals. Total time does not include separately billed tests performed on this date of service.
Subjective Dataa
Subjective Data
Date of Service:
Date of Service: September 12, 2024
Chief Complaint: Executive Search Consultant Follow Up
Subjective:
Patient was seen and evaluated this morning. Heart rate 70, BP 98/56 and saturating 97% on room air. Likely going home today. Went into A-fib when the Mendez catheter was removed today. He feels well, denying chest pain, SOB, nausea, fevers or
chills.
Review of Systems
General: Other (Negative unless mentioned above)
Objective Data
Data Reviewed
Vital Signs / I&O / Oxygen:
Vital Signs
Temp Pulse Resp BP Pulse Ox
98.3 F 67 15 104/67 97
09/12/24 07:00 09/12/24 09:00 09/12/24 09:00 09/12/24 09:00 09/12/24 09:00
Intake and Output
09/11/24 09/12/24 09/13/24
06:59 06:59 06:59
Intake Total 2020 / 2100 320 / 320
Output Total 2830 / 3005 175 / 175
Balance -810 / -905 145 / 145
SaO2 97
Nasal Cannula flow liters per 3
minute
Physical Exam
General: Respiratory Distress (negative), Comfortable, Chills (negative) and Sweats (negative)
HEENT: Normocephalic and Anicteric
Cardiovascular: S1-S2 and Peripheral Edema (negative)
Respiratory: Clear, Wheeze (negative), Crackles (negative), Rhonchi (negative) and Non-Labored Respirations
GI: Soft, Distended (Abdominal obesity), Non Tender and Normal Bowel Sounds
Neurology: AO x 3 and Tremors (negative)
Skin: Warm, Dry, Cyanosis (negative) and Jaundice (negative)
Labs/Micro/Reports
Lab Data
09/12/24 04:53
09/12/24 04:53
--- NOTE | 2024-09-12 08:27 | VNURNOTE ---
Chart reviewed. Patient is current with [facility] nursing. Will continue to follow hospital course and DC plans.
[2024-09-12 08:46] VITALS: BP 105/72
[2024-09-12 09:00] VITALS: BP 104/67
[2024-09-12 10:00] VITALS: BP 98/56
--- NOTE | 2024-09-12 11:13 | CM ---
Initial assessment completed with patient who lives alone in a 2 story plus basement home with 2 steps to enter, bedroom and bath on 1st floor. [employer] patient was independent and drove. Uses a CPAP at [facility]. Has been receiving PT/OT and RN services
([place]) in the home S/P previous surgery. He has a friend that will stay with him after discharge. Pharmacy is [facility] on [facility] in [place], PCP is Dr. Jose George. No service. No psychiatric hospitalizations. Discharge POC: Resume HH services,
PT/OT and RN. Referral sent.
[2024-09-12 11:29] VITALS: BP 113/84
--- NOTE | 2024-09-12 11:30 | CM ---
Patient has been medically cleared for discharge to home with resumption of RN, PT/OT services with visiting nurses. Patient's friend will transport home. IMM signed 09/11/24.
[2024-09-12 11:48] LABS: Glucose - Point of Care 93 mg/dl (70-99)
[2024-09-12 12:00] VITALS: BP 124/83
--- NOTE | 2024-09-12 13:28 | PTCARENOTE ---
Patient discharged home, all IVs out, tele out, patient has been ambulating independently in room.
== END 2024-09-12 13:14 | disposition home health service (06) | DRG 269 ==
LOC: ICU 06:24
PROVIDERS: Nurse Practitioner; ADMITTING PHYSICIAN Surgery Vascular Surgery; CONSULT PHYSICIAN Internal Medicine Critical Care Medicine; FAMILY PHYSICIAN Internal Medicine
PROC: 04V03DZ Restriction of Abdominal Aorta with Intraluminal Device, Percutaneous Approach (ICD-10-PCS; 2024-09-11)
DX: I71.43 Infrarenal abdominal aortic aneurysm, without rupture (principal); F11.20 Opioid dependence, uncomplicated; G47.33 Obstructive sleep apnea (adult) (pediatric); K21.9 Gastro-esophageal reflux disease without esophagitis; E11.9 Type 2 diabetes mellitus without complications; M10.9 Gout, unspecified; E78.00 Pure hypercholesterolemia, unspecified; I10 Essential (primary) hypertension; I25.10 Atherosclerotic heart disease of native coronary artery without angina pectoris; D72.829 Elevated white blood cell count, unspecified; D64.9 Anemia, unspecified; J47.9 Bronchiectasis, uncomplicated; M19.90 Unspecified osteoarthritis, unspecified site; I48.91 Unspecified atrial fibrillation; Z60.2 Problems related to living alone; Z79.01 Long term (current) use of anticoagulants; Z95.5 Presence of coronary angioplasty implant and graft; Z87.891 Personal history of nicotine dependence; Z82.0 Family history of epilepsy and other diseases of the nervous system; Z86.79 Personal history of other diseases of the circulatory system
CPT/HCPCS: 34705; 34713; 36415; 80048; 82962; 85025; 85027; 85610; 85730; 86850; 86900; 86901; 93005; 94640; C1760; C1769; C1892; C1894; Q9967

== ENCOUNTER → 2024-09-17 10:58 | Outpatient (REF) | payer MEDICARE, OTHER, SELFPAY | LOC: WOUND 10:58 | PROVIDERS: ATTENDING PHYSICIAN Surgery; FAMILY PHYSICIAN Internal Medicine | DX: L97.212 Non-pressure chronic ulcer of right calf with fat layer exposed (principal); I87.2 Venous insufficiency (chronic) (peripheral); I73.9 Peripheral vascular disease, unspecified; I77.810 Thoracic aortic ectasia | CPT/HCPCS: 97597 ==

== ENCOUNTER → 2024-09-27 14:39 | Outpatient (REF) | payer MEDICARE, OTHER, SELFPAY | LOC: WOUND 14:39 | PROVIDERS: ATTENDING PHYSICIAN Surgery; FAMILY PHYSICIAN Internal Medicine | DX: L97.212 Non-pressure chronic ulcer of right calf with fat layer exposed (principal); I87.2 Venous insufficiency (chronic) (peripheral); I73.9 Peripheral vascular disease, unspecified; I77.810 Thoracic aortic ectasia; I71.43 Infrarenal abdominal aortic aneurysm, without rupture; Z79.01 Long term (current) use of anticoagulants; I47.10 Supraventricular tachycardia, unspecified; I50.22 Chronic systolic (congestive) heart failure; I50.32 Chronic diastolic (congestive) heart failure | CPT/HCPCS: 99213 ==

== ENCOUNTER → 2024-09-29 10:05 | Outpatient (REF) | payer MEDICARE, OTHER, SELFPAY | LOC: PAVMRI 10:05 | PROVIDERS: ATTENDING PHYSICIAN Physical Medicine & Rehabilitation; FAMILY PHYSICIAN Internal Medicine; REFERRING PHYSICIAN Family Medicine Sports Medicine | DX: M54.16 Radiculopathy, lumbar region (principal) | CPT/HCPCS: 72148 ==

== ENCOUNTER → 2024-09-30 11:42 | Outpatient (REF) | payer MEDICARE, OTHER, SELFPAY | LOC: RAD 11:42 | PROVIDERS: ATTENDING PHYSICIAN Surgery Vascular Surgery; FAMILY PHYSICIAN Internal Medicine | DX: I71.43 Infrarenal abdominal aortic aneurysm, without rupture (principal) | CPT/HCPCS: 74174; Q9967 ==

== ENCOUNTER → 2024-10-07 09:36 | Outpatient (REF) | payer MEDICARE, OTHER, SELFPAY ==
[2024-10-07 10:40] LABS: % Basophils 0.8 % (0-2); % Immature Granulocytes 0.4 % (0-0.5); % Lymphocytes 25.9 % (20.5-51.1); % Monocytes 6.7 % (1.7-9.3); % Neutrophils 64.2 % (42.2-75.2); Absolute Basophils 0.1 10^3/uL (0-0.2); Absolute Eosinophils 0.2 10^3/uL (0-0.7); Absolute Lymphocytes 2.8 10^3/uL (1.2-3.4); Absolute Monocytes 0.7 10^3/uL (0.1-0.6); Hematocrit 46.7 % (39.0-52.0); Hemoglobin 14.6 g/dL (13.0-18.0); Mean Corp Hgb Conc. 31.3 g/dL (33.0-37.0); Mean Corpuscular Volume 86.3 fL (80.0-94.0); Mean Platelet Volume 8.8 fL (7.4-10.4); Nucleated Red Blood Cells % 0 % (-); Platelet Count 316 10^3/uL (130-400); Red Blood Cell Count 5.41 10^6/uL (4.70-6.10); Red Cell Dist. Width 16.1 % (11.5-14.5); White Blood Cell Count 10.9 10^3/uL (4.8-10.8)
[2024-10-07 11:05] LABS: Erythrocyte Sed Rate 2 mm/hour (0-20)
[2024-10-07 11:10] LABS: ALT (SGPT) 13 U/L (0-50); AST (SGOT) 15 U/L (17-59); Albumin 4.6 g/dl (3.5-5.0); Alkaline Phosphatase 85 U/L (38-126); Blood Urea Nitrogen 16 mg/dl (9-20); Carbon Dioxide 26 mmol/L (22-30); Chloride 107 mmol/L (98-107); Glucose 86 mg/dl (70-99); Iron 41 ug/dl (49-181); Potassium 4.8 mmol/L (3.5-5.1); Sodium 142 mmol/L (135-145); Total Bilirubin 0.3 mg/dl (0.2-1.3); Total Protein 7.4 g/dl (6.3-8.2); Uric Acid 3.6 mg/dl (3.5-8.5); eGFR > 60.00
[2024-10-07 11:19] LABS: Percent Saturation 9 % (20-50); Total Iron Binding Capacity 453 ug/dl (261-462)
[2024-10-07 12:05] LABS: Vitamin B12 231 pg/ml (239-931)
[2024-10-07 13:21] LABS: Folate 11.7 ng/ml (2.76-20)
[2024-10-07 13:54] LABS: Rheumatoid Agglutinin Less Than 10 IU (<10 IU)
[2024-10-07 13:57] LABS: Lyme Antibody Screen, EIA Negative (Negative)
[2024-10-08 11:35] LABS: Ferritin 19.6 ng/ml (17.9-464.0)
[2024-10-09 05:20] LABS: ANA, IgG Reflex to HEp-2 None Detected (None Detected)
== END ==
LOC: REG 09:36
PROVIDERS: ATTENDING PHYSICIAN Physician Assistant; FAMILY PHYSICIAN Internal Medicine; REFERRING PHYSICIAN Nurse Practitioner Primary Care
DX: I71.43 Infrarenal abdominal aortic aneurysm, without rupture (principal); D72.829 Elevated white blood cell count, unspecified; Z87.39 Personal history of other diseases of the musculoskeletal system and connective tissue; D64.9 Anemia, unspecified; Z79.899 Other long term (current) drug therapy; E61.1 Iron deficiency
CPT/HCPCS: 36415; 80053; 82607; 82728; 82746; 83540; 83550; 84550; 85025; 85652; 86038; 86140; 86430; 86618

== ENCOUNTER → 2024-10-07 10:15 | Outpatient (REF) | payer MEDICARE, OTHER, SELFPAY | LOC: WOUND 10:15 | PROVIDERS: ATTENDING PHYSICIAN Surgery; FAMILY PHYSICIAN Internal Medicine | DX: L97.212 Non-pressure chronic ulcer of right calf with fat layer exposed (principal); I87.2 Venous insufficiency (chronic) (peripheral); I73.9 Peripheral vascular disease, unspecified; I71.43 Infrarenal abdominal aortic aneurysm, without rupture; I47.10 Supraventricular tachycardia, unspecified; I50.22 Chronic systolic (congestive) heart failure; I50.32 Chronic diastolic (congestive) heart failure; Z79.01 Long term (current) use of anticoagulants | CPT/HCPCS: 99212 ==

== ENCOUNTER → 2024-10-15 07:47 | Outpatient (REF) | payer MEDICARE, OTHER, SELFPAY ==
[2024-10-15 14:01] LABS: Erythrocyte Sed Rate 5 mm/hour (0-20)
[2024-10-17 05:27] LABS: Complement C3 121 mg/dl (88-165)
[2024-10-17 08:50] LABS: ANA, IgG Reflex to HEp-2 None Detected (None Detected)
== END ==
LOC: REG 07:47
PROVIDERS: ATTENDING PHYSICIAN Internal Medicine; FAMILY PHYSICIAN Internal Medicine
DX: L23.0 Allergic contact dermatitis due to metals (principal); L29.9 Pruritus, unspecified; L50.3 Dermatographic urticaria
CPT/HCPCS: 36415; 83520; 85652; 86038; 86140; 86160

== ENCOUNTER → 2024-11-29 10:29 | Outpatient (REF) | payer MEDICARE, OTHER, SELFPAY | LOC: WOUND 10:29 | PROVIDERS: ATTENDING PHYSICIAN Surgery; FAMILY PHYSICIAN Nurse Practitioner Primary Care | DX: S61.452A Open bite of left hand, initial encounter (principal); W54.0XXA Bitten by dog, initial encounter; I87.2 Venous insufficiency (chronic) (peripheral); I73.9 Peripheral vascular disease, unspecified; I77.810 Thoracic aortic ectasia; I71.43 Infrarenal abdominal aortic aneurysm, without rupture; I47.10 Supraventricular tachycardia, unspecified; I50.22 Chronic systolic (congestive) heart failure; I50.32 Chronic diastolic (congestive) heart failure; Z79.01 Long term (current) use of anticoagulants | CPT/HCPCS: 99214 ==

== ENCOUNTER → 2024-12-05 13:26 | Outpatient (REF) | payer MEDICARE, OTHER, SELFPAY ==
[2024-12-05 14:21] LABS: Hematocrit 42.7 % (39.0-52.0); Hemoglobin 13.4 g/dL (13.0-18.0); Mean Corp Hgb Conc. 31.4 g/dL (33.0-37.0); Mean Corpuscular Volume 85.4 fL (80.0-94.0); Nucleated Red Blood Cells % 0 % (-); Platelet Count 260 10^3/uL (130-400); Red Cell Dist. Width 19.0 % (11.5-14.5)
[2024-12-07 21:34] LABS: Thyroglobulin Antibodies 5.6 IU/mL (0.0-4.0)
== END ==
LOC: REG 13:26
PROVIDERS: ATTENDING PHYSICIAN Internal Medicine; FAMILY PHYSICIAN Internal Medicine
DX: R53.83 Other fatigue (principal)
CPT/HCPCS: 36415; 85025; 86376; 86800

== ENCOUNTER → 2024-12-06 09:43 | Outpatient (REF) | payer MEDICARE, OTHER, SELFPAY | LOC: WOUND 09:43 | PROVIDERS: ATTENDING PHYSICIAN Surgery; FAMILY PHYSICIAN Nurse Practitioner Primary Care | DX: S61.452A Open bite of left hand, initial encounter (principal); W54.0XXA Bitten by dog, initial encounter; I87.2 Venous insufficiency (chronic) (peripheral); I73.9 Peripheral vascular disease, unspecified; I77.810 Thoracic aortic ectasia; I71.43 Infrarenal abdominal aortic aneurysm, without rupture; I47.10 Supraventricular tachycardia, unspecified; I50.22 Chronic systolic (congestive) heart failure; I50.32 Chronic diastolic (congestive) heart failure; Z79.01 Long term (current) use of anticoagulants | CPT/HCPCS: 99212 ==

== ENCOUNTER → 2024-12-23 09:30 | Outpatient (REF) | payer MEDICARE, SELFPAY ==
[2024-12-23 11:36] LABS: ALT (SGPT) 14 U/L (0-50); AST (SGOT) 14 U/L (17-59); Albumin 4.2 g/dl (3.5-5.0); Alkaline Phosphatase 78 U/L (38-126); Glucose 95 mg/dl (70-99); HDL Cholesterol 48 mg/dl; LDL Cholesterol, Calculated 46 mg/dl; Total Protein 6.6 g/dl (6.3-8.2); Very Low Density Lipoprotein 23 mg/dl (0-30)
[2024-12-23 11:56] LABS: Glycohemoglobin (HgbA1c) 6.4 % (4.0-5.6)
[2024-12-23 12:19] LABS: Vitamin B12 991 pg/ml (239-931)
[2024-12-23 13:50] LABS: Microalb - Urine Creatinine 79.700 mg/dl
[2024-12-23 13:51] LABS: Microalbumin, Random Urine 1.1 mg/dl (0.6-1.7)
== END ==
LOC: REG 09:30
PROVIDERS: ATTENDING PHYSICIAN Internal Medicine; OTHER PHYSICIAN Nurse Practitioner Primary Care
DX: E11.59 Type 2 diabetes mellitus with other circulatory complications (principal); E78.5 Hyperlipidemia, unspecified; I10 Essential (primary) hypertension; E66.811 Obesity, class 1; E53.8 Deficiency of other specified B group vitamins
CPT/HCPCS: 36415; 80061; 80076; 82043; 82570; 82607; 82947; 83036; 83090; 83921

== ENCOUNTER → 2024-12-26 13:20 | Outpatient (REF) | payer MEDICARE, OTHER, SELFPAY | LOC: HWRAD 13:20 | PROVIDERS: ATTENDING PHYSICIAN Nurse Practitioner Adult Health; FAMILY PHYSICIAN Internal Medicine | DX: Z72.0 Tobacco use (principal); R91.8 Other nonspecific abnormal finding of lung field | CPT/HCPCS: 71250 ==

== ENCOUNTER → 2025-01-22 11:48 | Outpatient (REF) | payer MEDICARE, OTHER, SELFPAY ==
[2025-01-22 13:33] LABS: ALT (SGPT) 18 U/L (0-50); AST (SGOT) 14 U/L (17-59); Albumin 3.8 g/dl (3.5-5.0); Alkaline Phosphatase 58 U/L (38-126); Blood Urea Nitrogen 28 mg/dl (9-20); Calcium 9.4 mg/dl (8.4-10.2); Carbon Dioxide 25 mmol/L (22-30); Chloride 109 mmol/L (98-107); Glucose 85 mg/dl (70-99); HDL Cholesterol 44 mg/dl; LDL Cholesterol, Calculated 60 mg/dl; Potassium 4.7 mmol/L (3.5-5.1); Sodium 141 mmol/L (135-145); Total Protein 6.1 g/dl (6.3-8.2); Very Low Density Lipoprotein 22 mg/dl (0-30); eGFR > 60.00
[2025-01-22 13:36] LABS: Glycohemoglobin (HgbA1c) 6.1 % (4.0-5.6)
[2025-01-22 13:41] LABS: Microalb - Urine Creatinine 102.300 mg/dl
[2025-01-22 13:45] LABS: Microalbumin, Random Urine 1.3 mg/dl (0.6-1.7)
[2025-01-22 14:01] LABS: TSH 1.60 uIU/ml (0.47-4.68)
== END ==
LOC: REG 11:48
PROVIDERS: ATTENDING PHYSICIAN Internal Medicine Endocrinology, Diabetes & Metabolism; FAMILY PHYSICIAN Internal Medicine
DX: E11.9 Type 2 diabetes mellitus without complications (principal); E04.2 Nontoxic multinodular goiter; E29.1 Testicular hypofunction
CPT/HCPCS: 36415; 80053; 80061; 82043; 82570; 83036; 84403; 84443

== ENCOUNTER → 2025-03-19 11:42 | Outpatient (REF) | payer MEDICARE, OTHER, SELFPAY | LOC: HWRCS 11:42 | PROVIDERS: ATTENDING PHYSICIAN Internal Medicine; FAMILY PHYSICIAN Internal Medicine | DX: I42.8 Other cardiomyopathies (principal); R07.9 Chest pain, unspecified; I25.10 Atherosclerotic heart disease of native coronary artery without angina pectoris; R06.09 Other forms of dyspnea | CPT/HCPCS: 78452; 93017; A9500; J2785 ==

== ENCOUNTER → 2025-03-24 11:22 | Outpatient (REF) | payer MEDICARE, OTHER, SELFPAY | LOC: HWRCS 11:22 | PROVIDERS: ATTENDING PHYSICIAN Internal Medicine; FAMILY PHYSICIAN Internal Medicine | DX: I42.8 Other cardiomyopathies (principal); R07.9 Chest pain, unspecified; I25.10 Atherosclerotic heart disease of native coronary artery without angina pectoris; R06.09 Other forms of dyspnea | CPT/HCPCS: 93306 ==

== ENCOUNTER → 2025-04-07 10:32 | Outpatient (REF) | payer MEDICARE, OTHER, SELFPAY ==
[2025-04-07 11:44] LABS: Hematocrit 48.8 % (39.0-52.0); Hemoglobin 15.5 g/dL (13.0-18.0); Mean Corp Hgb Conc. 31.8 g/dL (33.0-37.0); Mean Corpuscular Volume 88.2 fL (80.0-94.0); Nucleated Red Blood Cells % 0 % (-); Platelet Count 307 10^3/uL (130-400); Red Cell Dist. Width 15.8 % (11.5-14.5)
[2025-04-07 12:12] LABS: ALT (SGPT) 15 U/L (0-50); AST (SGOT) 15 U/L (17-59); Albumin 4.1 g/dl (3.5-5.0); Alkaline Phosphatase 69 U/L (38-126); Blood Urea Nitrogen 21 mg/dl (9-20); Calcium 9.8 mg/dl (8.4-10.2); Carbon Dioxide 27 mmol/L (22-30); Chloride 104 mmol/L (98-107); Glucose 88 mg/dl (70-99); HDL Cholesterol 44 mg/dl; LDL Cholesterol, Calculated 48 mg/dl; Potassium 4.6 mmol/L (3.5-5.1); Sodium 137 mmol/L (135-145); Total Protein 6.5 g/dl (6.3-8.2); Very Low Density Lipoprotein 22 mg/dl (0-30); eGFR > 60.00
[2025-04-07 12:37] LABS: PSA, Total - Screen 1.98 ng/ml (0.0-4.0)
[2025-04-07 14:26] LABS: Glycohemoglobin (HgbA1c) 6.6 % (4.0-5.9)
== END ==
LOC: RAD 10:32
PROVIDERS: ATTENDING PHYSICIAN Surgery Vascular Surgery; FAMILY PHYSICIAN Internal Medicine; REFERRING PHYSICIAN Internal Medicine
DX: I71.43 Infrarenal abdominal aortic aneurysm, without rupture (principal); E11.59 Type 2 diabetes mellitus with other circulatory complications; E78.5 Hyperlipidemia, unspecified; I10 Essential (primary) hypertension; E66.811 Obesity, class 1; F41.8 Other specified anxiety disorders; Z00.01 Encounter for general adult medical examination with abnormal findings; Z12.5 Encounter for screening for malignant neoplasm of prostate
CPT/HCPCS: 36415; 76770; 80053; 80061; 83036; 85025; G0103